=== PATIENT | male | born 1950 | race Caucasian/White ===

== ENCOUNTER → 2017-02-01 | Outpatient (CLI) | payer OTHER ==
[~2017-02-01] MED LIST: ALLO300T2 PO; ASPI81TA25 PO; ATEN-173 PO; CLB200 PO; CMD5 PO; COEN1CAP37 PO; GLC5 PO; HYDR-5688 PO; IMP/50 PO; MISCCAP80 PO; MONT1TAB3 PO; MULTTAB PO; OLME40TA30 PO; SNK PO; VITAMIN PO
== END | disposition home or self-care (01) ==
LOC: C.LABPBG 11:03
PROVIDERS: ATTEND Urology
DX: C61 Malignant neoplasm of prostate (principal)

== ENCOUNTER → 2017-12-15 | Outpatient (CLI) | payer OTHER | END | disposition home or self-care (01) | LOC: C.LABPBG 11:50 | PROVIDERS: ATTEND Urology | DX: C61 Malignant neoplasm of prostate (principal); R32 Unspecified urinary incontinence ==

== ENCOUNTER 2022-07-01 15:26 | Inpatient (IN) ==
--- NOTE | 2022-07-01 16:22 | XRay Report ---
XR ankle RT min 3V routine CLINICAL HISTORY: Right ankle injury with pain. COMPARISON STUDY: None. FINDINGS: Diffuse soft tissue swelling within the right ankle. There is a plantar heel spur and vascu lar calcifications. Mildly displaced and slightly comminuted fracture within the distal shaft of the right fibula. This demonstrates up to 2 mm of lateral displacement. There is a mildly displaced fract ure at the medial malleolus which demonstrates 4 mm of lateral displacement. There appears to be a mi ldly displaced posterior malleolus fracture with widening of the ankle mortise and posterior subluxat ion of the talus in relation to the distal tibia. IMPRESSION: A displaced trimalleolar right ankle fracture as described above with widening of the an kle mortise and posterior subluxation of the talus in relation to the distal tibia. ACT 112: Negative or not required by law. Electronically signed by: Fransisco Allred M.D. 07/01/2022 4:21 PM
[2022-07-01] MEDS ORDERED: MoRPHine SULFATE 2 MG/ML CARP IV STA (16:48)
[2022-07-01] MEDS ORDERED: ACETAMINOPHEN 1,000 MG/100 ML VIAL IV STA (16:48)
--- NOTE | 2022-07-01 16:59 | Emergency Department Note ---
Impression & Plan Closed trimalleolar fracture of right ankle, ESRD (end stage renal disease) on dialysis ED Provider Note NAME: SRINIVASAN LOMAX AGE: 71 SEX: M ARRIVES VIA: Ambulance INFORMANT: Patient ED PROVIDER(S): Panfilo Vasques MD CHIEF COMPLAINT: Right ankle pain swelling, fall PLAN: Disposition: Admit MEDICAL DECISION MAKING: The patient is a pleasant 71-year-old gentleman with a past medical history of end-stage renal disease on dialysis, Wednesday who presents to the emergency department via EMS and accompanied by his for evaluation of right ankle pain which occurred when he was attempting to get up into his friend's truck and fell backwards twisting his ankle. He reports he fell backwards onto his lower back but denies head strike or loss of consciousness. He is on Eliquis. He denies any significant back pain. He has no hip pain and moves his hips bilaterally without difficulty. On arrival patient is uncomfortable no acute distress, afebrile stable vital signs. His right ankle is swollen with moderate deformity. Distal PMS is intact. Plan films were performed and demonstrates a trimalleolar fracture with posteri or displacement of the talus. We did discuss the typical management including reduction at the bedside which the patient was in agreement with. However he does feel that he would not be able to effectively function with nonweightbearing status even with a walker. Case was discussed with [facility] on-call, Dr. Loredo (patient had knee surgery with [facility]). Given the patient cannot maintain nonweightbearing status effectively understands need for admission. They will evaluate the patient in the morning. Given his edema they may consider surgical repair after a week or so but they will reassess. Agrees with reduction and splinting in the emergency department. Patient did agree to proceed with bedside reduction which was performed with pretreatment with IV morphine per procedure note. The patient tolerated the reduction well and there was improved alignment of the talar dislocation with residual displacement fibula fx and posterior tibial fragment. WBC 10.8K nonspecific. Platelets within normal limits. H/H 9.2/20.3 without recent values for comparison. Creatinine 3.2 in setting of the patient's end- stage renal disease. Electrolytes without significant abnormality. COVID-19 RNA, LUC test was negative. Case was d/w Dr. Li, MARJAN admitting resident with HONORIO Larsen hospitalist who will evaluate the patient for admission. Triage Nursing notes reviewed and agree them. Prior medical records reviewed Vital Signs: reviewed and remarkable for no significant abnormalities Differential diagnosis: Fracture, subluxation, dislocation, contusion, ligamentous injury, neurovasc ular, compartment syndrome, rhabdomyolysis, as well as other pathologies. ER treatment provided: See below. Diagnostics interpreted by me: ECG: Sinus rhythm with occasional PVCs, 67 bpm, no overt ST elevation or depression, QTC 534, QRS 116. Cardiac Monitoring: An order for continuous cardiac monitoring was placed and demonstrated Sinus rhythm with occasional PVCs, 67 bpm. Laboratory studies: See below Imaging studies: See below Consultation(s): MARJAN Beltran admitting resident with HONORIO Larsen hospitalist HPI: The patient is a pleasant 71-year-old gentleman with a past medical history of end-stage renal disease on dialysis, Wednesday who presents to the emergency department via EMS and accompanied by his for evaluation of right ankle pain which occurred when he was attempting to get up into his friend's truck and fell backwards twisting his ankle. He reports he fell backwards onto his lower back but denies head strike or loss of consciousness. He is on Eliquis. He denies any significant back pain. He has no hip pain and moves his hips bilaterally without difficulty. ROS: See above HPI for pertinent positives & negatives. A total of 10 systems reviewed and were otherwise negative. VITALS:See Below PHYSICAL EXAMINATION: GENERAL: Awake, alert, uncomfortable-appearing, in no distress HENT: Normocephalic, atraumatic. Oropharynx unremarkable. EYES: Normal conjunctiva. Sclera non-icteric. NECK: Supple. No nuchal rigidity. FROM. No JVD. RESPIRATORY: Clear to auscultation. CARDIAC: Regular rate, normal rhythm. Extremities warm and well perfused. Pulses equal. ABDOMEN: Soft, non-distended. No tenderness to palpation. No rebound or guarding. No masses. RECTAL: Deferred. MUSCULOSKELETAL: Chest examination reveals no tenderness. The back is symmetrical on inspection without obvious abnormality. There is no CVA tenderness to palpation. Right ankle is swollen with moderate deformity. Distal PMS is intact. LOWER EXTREMITIES: Calves are equal size bilaterally and non-tender. No edema. No discoloration. NEURO: Normal sensorium. No sensory or motor deficits noted. SKIN: No rash or jaundice noted. ED COURSE: Times/Reassessments: Procedures: Splint Care: After the ortho glass splint was placed by the assistant merchandise manager, I examined the splint and confirmed proper application/placement/position. Neurovascular status was intact both proximal and distal to the splinted area. Ankle Fracture Dislocation Reduction Indication: Right ankle fracture dislocation. Verbal consent obtained. Risks and benefits were explained with the usual customary discussion. Neurovascular examination before the procedure revealed no deficits. The right ankle fracture dislocation was reduced by placing the patient supine and applying gentle inline axial traction on the right forefoot foot and heel with slight plantar flexion while counter traction on the proximal tibia was applied and distal tibia stabilized with hip and knee in flexion. This resulted in reduction without complication. Post-reduction Xray demonstrates improved anatomic alignment. Neurovascular examination after the procedure revealed no deficits. The patient had significant pain relief and tolerated the procedure well. Panfilo Vasques MD Past Med/Surg History Medical History Atrial fibrillation Depression Diabetes mellitus Diabetic neuropathy ESRD (end stage renal disease) on dialysis GERD (gastroesophageal reflux disease) Gout HLD (hyperlipidemia) HTN (hypertension) Impotence, organic Incontinence Localized primary osteoarthritis of left lower leg (01/10/13) Neoplasm of prostate Prostate cancer Sleep apnea Family History Other Family history non-contributory Social History Smoking Status: Former smoker Tobacco Type: Smokeless Tobacco (Dip or Chew) Second Hand Exposure: No; Do You Dip or Chew Tobacco: Yes; Tobacco Cessation Education Requested by Patient: No Hx Alcohol Use: No Hx Substance Use: No Preferred Language: Macedonian Communication Ability: Effective Can Crimper Required: No Current Living Situation: Spouse Other Information That Helps Us Care for You: No Feels Safe at Home: Yes Safety Concerns: Feels Safe At This Time Assistive Devices: CPAP Allergies Allergies Allergy/AdvReac Type Severity Reaction Status Date / Time oxycodone AdvReac Unknown severe dry Verified 05/19/21 15:45 mouth, 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 side effects (TIRED, LETHARGIC) Home Meds Home Medications Medication Instructions Recorded Confirmed B-complex with vitamin C 1 tab PO DAILY 07/01/22 07/01/22 Nerve Renew 2 tab PO DAILY 07/01/22 07/01/22 Nerve Repair Optimizer 1 tab PO DAILY 07/01/22 07/01/22 acetaminophen 650 mg 650 mg PO Q12H PRN Pain 07/01/22 07/01/22 tablet,extended release (Arthritis Pain Relief (acetaminophen) ER) allopurinol 100 mg tablet 100 mg PO BID 07/01/22 07/01/22 amiodarone 200 mg tablet 200 mg PO DAILY 07/01/22 07/01/22 apixaban 5 mg tablet (Eliquis) 5 mg PO BID 07/01/22 07/01/22 atorvastatin 40 mg tablet 40 mg PO DAILY 07/01/22 07/01/22 cetirizine 10 mg tablet (Zyrtec) 10 mg PO DAILY 07/01/22 07/01/22 cholecalciferol (vitamin D3) 50 50 mcg PO DAILY 07/01/22 07/01/22 mcg (2,000 unit) tablet (Vitamin D3) coenzyme Q10 200 mg capsule (Co 200 mg PO DAILY 07/01/22 07/01/22 Q-10) famotidine 20 mg tablet 20 mg PO BID 07/01/22 07/01/22 furosemide 40 mg tablet (Lasix) 40 mg PO DAILY 07/01/22 07/01/22 glipizide 5 mg tablet 5 mg PO BID 07/01/22 07/01/22 imipramine HCl 50 mg tablet 50 mg PO QPM 07/01/22 07/01/22 melatonin 10 mg tablet 10 mg PO HS 07/01/22 07/01/22 metoprolol succinate 25 mg 12.5 mg PO DAILY 07/01/22 07/01/22 tablet,extended release 24 hr midodrine 10 mg tablet 5 mg PO 3XWK 07/01/22 07/01/22 montelukast 10 mg tablet 10 mg PO PM 07/01/22 07/01/22 omega-3 fatty acids 1,000 mg 1,000 mg PO BID 07/01/22 07/01/22 capsule sacubitril 24 mg-valsartan 26 mg 1 tab PO BID 07/01/22 07/01/22 tablet (Entresto) sertraline 25 mg tablet 25 mg PO DAILY 07/01/22 07/01/22 Results & Data (ED) Vital Signs Vital Signs - 24 hr 07/01/22 15:38 07/01/22 17:31 07/01/22 18:00 Temperature 36.9 C Temperature Source Oral Pulse Rate 64 Pulse Rate [Right Finger] 66 66 Respiratory Rate 16 16 16 Respiratory Effort / Characteristics Non-Labored Spontaneous Respiratory Depth Normal Blood Pressure 136/66 Blood Pressure [Right Arm] 137/62 127/82 Blood Pressure Mean 89 Blood Pressure Mean [Right Arm] 87 97 Pulse Oximetry 97 96 96 Oxygen Delivery Method Room Air Room Air Sepsis Recent Fever Within 48 Hours No Sepsis New/Unexplained Change in Mental Status N/A Sepsis Action Taken by Nursing No Action Required Laboratory Data Result diagrams: 07/01/22 17:08 07/01/22 19:02 Lab Results 07/01/22 07/01/22 07/01/22 Range/Units 17:08 17:08 17:08 WBC 10.85 H (4.8-10.8) K/ul RBC 2.83 L (4.63-6.08) M/uL Hgb 9.2 L (14.0-18.0) g/dl Hct 28.3 L (40.1-51.0) % MCV 100.0 (80.0-100.0) fL MCH 32.5 (25.0-34.0) pg MCHC 32.5 (32.0-36.0) g/dL RDW Std Deviation 62.0 H (36.4-46.3) fL RDW Coeff of Charlie 17.2 H (11.5-14.5) % Plt Count 246 (130-400) K/uL MPV 9.8 (9.4-12.4) fL Immature Gran % (Auto) 0.4 % Neut % (Auto) 80.7 % Lymph % (Auto) 6.6 % [place] % (Auto) 8.9 % Eos % (Auto) 2.8 % Baso % (Auto) 0.6 % Neut # (Auto) 8.75 H (1.4-6.5) K/uL Lymph # (Auto) 0.72 L (1.2-3.4) K/uL [place] # (Auto) 0.97 H (0.24-0.82) K/uL Eos # (Auto) 0.30 (0-0.50) K/uL Baso # (Auto) 0.07 (0-0.2) K/uL Immature Gran # (Auto) 0.04 H (0.00-0.02) K/uL PT 13.5 H (9.0-12.0) Seconds INR 1.3 H (0.9-1.1) Sodium 136 (136-145) mmol/L Potassium TNP Chloride 95 L (98-107) mmol/L Carbon Dioxide 33 H (21-32) mmol/L Anion Gap 8 (3-11) BUN 14 (6-23) mg/dl Creatinine 3.27 H (0.6-1.4) mg/dl Est Cr Clr Drug Dosing 25.3 ml/min Est GFR ( Amer) 20.7 ml/min Est GFR (Non-Af Amer) 17.9 ml/min BUN/Creatinine Ratio 4.3 L (10-20) Glucose 85 (70-99(Fasting)) mg/dl Calcium 9.2 (8.5-10.1) mg/dl Phosphorus 2.8 (2.5-4.9) mg/dl Magnesium 2.1 (1.7-2.4) mg/dl SARS-CoV-2, RNA, NAAT (NEGATIVE) 07/01/22 Range/Units 17:14 WBC (4.8-10.8) K/ul RBC (4.63-6.08) M/uL Hgb (14.0-18.0) g/dl Hct (40.1-51.0) % MCV (80.0-100.0) fL MCH (25.0-34.0) pg MCHC (32.0-36.0) g/dL RDW Std Deviation (36.4-46.3) fL RDW Coeff of Charlie (11.5-14.5) % Plt Count (130-400) K/uL MPV (9.4-12.4) fL Immature Gran % (Auto) % Neut % (Auto) % Lymph % (Auto) % [place] % (Auto) % Eos % (Auto) % Baso % (Auto) % Neut # (Auto) (1.4-6.5) K/uL Lymph # (Auto) (1.2-3.4) K/uL [place] # (Auto) (0.24-0.82) K/uL Eos # (Auto) (0-0.50) K/uL Baso # (Auto) (0-0.2) K/uL Immature Gran # (Auto) (0.00-0.02) K/uL PT (9.0-12.0) Seconds INR (0.9-1.1) Sodium (136-145) mmol/L Potassium Chloride (98-107) mmol/L Carbon Dioxide (21-32) mmol/L Anion Gap (3-11) BUN (6-23) mg/dl Creatinine (0.6-1.4) mg/dl Est Cr Clr Drug Dosing ml/min Est GFR ( Amer) ml/min Est GFR (Non-Af Amer) ml/min BUN/Creatinine Ratio (10-20) Glucose (70-99(Fasting)) mg/dl Calcium (8.5-10.1) mg/dl Phosphorus (2.5-4.9) mg/dl Magnesium (1.7-2.4) mg/dl SARS-CoV-2, RNA, NAAT NEGATIVE (NEGATIVE) Administered Medications Allopurinol (Allopurinol 100 Mg Tab) 100 mg PO [id number] [facility] Stop: 07/31/22 21:01 Last Admin: 07/01/22 22:43 Dose: 100 mg Documented By: EKF Famotidine (Famotidine 20 Mg Tab) 20 mg PO DAILY JENNY Stop: 07/31/22 21:01 Last Admin: 07/01/22 22:43 Dose: 20 mg Documented By: EKF Fish Oil (Morrow-3 (Purified Fish Oil) 1 Gm Cap) 1 gm PO BID JENNY Stop: 07/31/22 21:01 Last Admin: 07/01/22 22:19 Dose: 1 gm Documented By: EKF Imipramine HCl (Imipramine Hcl 50 Mg Tab) 50 mg PO QPM JENNY Stop: 07/31/22 21:01 Last Admin: 07/01/22 22:18 Dose: 50 mg Documented By: EKF Insulin Aspart (Insulin Aspart Per Unit) 0 units SC Q6H JENNY Stop: 07/31/22 20:14 Last Admin: 07/01/22 21:23 Dose: Not Given Documented By: EKF Melatonin (Melatonin 3 Mg Tab) 9 mg PO HS JENNY Stop: 07/31/22 21:01 Last Admin: 07/01/22 22:18 Dose: 9 mg Documented By: EKF Montelukast Sodium (Montelukast Sodium 10 Mg Tablet) 10 mg PO PM JENNY Stop: 07/31/22 21:01 Last Admin: 07/01/22 22:18 Dose: 10 mg Documented By: EKF Sacubitril/Valsartan (Valsartan/Sacubitril 26/24mg Tab) 1 tab PO BID JENNY Stop: 07/31/22 21:01 Last Admin: 07/01/22 22:19 Dose: 1 tab Documented By: EKF Discontinued Medications Acetaminophen (Ofirmev) 1,000 mg in 100 mls @ 400 mls/hr IV NOW STA Stop: 07/01/22 17:02 Last Infusion: 07/01/22 17:34 Dose: 0 mls/hr Documented By: Admin: 07/01/22 17:19 Dose: 400 mls/hr Documented By: ASW Morphine Sulfate (Morphine Sulfate 2 Mg/Ml Carp) 1 mg IV NOW STA Stop: 07/01/22 16:49 Last Admin: 07/01/22 17:20 Dose: 1 mg Documented By: ASW Imaging Data Radiologist's Impression: Ankle X-Ray 07/01/22 15:46 XR ankle RT min 3V routine CLINICAL HISTORY: Right ankle injury with pain. COMPARISON STUDY: None. FINDINGS: Diffuse soft tissue swelling within the right ankle. There is a plantar heel spur and vascular calcifications. Mildly displaced and slightly comminuted fracture within the distal shaft of the right fibula. This demonstrates up to 2 mm of lateral displacement. There is a mildly displaced fracture at the medial malleolus which demonstrates 4 mm of lateral displacement. There appears to be a mildly displaced posterior malleolus fracture with widening of the ankle mortise and posterior subluxation of the talus in relation to the distal tibia. IMPRESSION: A displaced trimalleolar right ankle fracture as described above with widening of the ankle mortise and posterior subluxation of the talus in relation to the distal tibia. ACT 112: Negative or not required by law. Electronically signed by: Fransisco Allred M.D. 07/01/2022 4:21 PM Ankle X-Ray 07/01/22 18:21 XR ankle RT min 3V routine HISTORY: 71 years-old Male post reduction status post reduction and casting of acute right ankle fracture COMPARISON: Radiographs of same day at 3:52 PM TECHNIQUE: 3 radiographs of the right ankle FINDINGS: Pes planus with degenerative spurring of the calcaneus. Mild osteoarthritis of the foot and ankle. Acute comminuted distal fibular metaphyseal fracture demonstrates unchanged alignment with the largest fracture fragment displaced posteriorly a few millimeters. 2 mm lateral displacement of the distal fracture fragment. Mild widening of the distal tibiofibular syndesmosis. Mild subluxation of the tibiotalar joint has improved from prior. Acute nondisplaced medial malleolar fracture demonstrates improved alignment. Posteriorly displaced posterior malleolar fracture redemonstrated along with os trigonum. IMPRESSION: Improved alignment of the acute fracture dislocation of the right ankle status post reduction and casting. ACT 112: Negative or not required by law. The above report was generated using voice recognition software. It may contain grammatical, syntax or spelling errors. Electronically signed by: Perez Neri M.D. 07/01/2022 7:06 PM Discharge Plan Visit Data Chief Complaint: Ankle Pain Stated Complaint: FALL, R ANKLE PAIN ED Provider: Panfilo Vasques Discharge Problem: Closed trimalleolar fracture of right ankle, ESRD (end stage renal disease) on dialysis Patient Disposition: Admitted As Inpatient Discharge Instructions Interventions: ED Discharge Assessment Last Done: 07/01/22 20:27
[2022-07-01 17:22] LABS: Basophils # (auto) 0.07 K/uL (0-0.2); Basophils % (auto) 0.6 %; Eosinophils % (auto) 2.8 %; Hematocrit (blood only) 28.3 % (40.1-51.0); Hemoglobin 9.2 g/dl (14.0-18.0); Immature Granulocytes # (auto) 0.04 K/uL (0.00-0.02); Immature Granulocytes % (auto) 0.4 %; Lymphocytes # (auto) 0.72 K/uL (1.2-3.4); Lymphocytes % (auto) 6.6 %; Mean Corpuscular Hemoglobin 32.5 pg (25.0-34.0); Mean Corpuscular Hgb Conc 32.5 g/dL (32.0-36.0); Mean Platelet Volume 9.8 fL (9.4-12.4); Monocytes # (auto) 0.97 K/uL (0.24-0.82); Monocytes % (auto) 8.9 %; Neutrophils # (auto) 8.75 K/uL (1.4-6.5); Neutrophils % (auto) 80.7 %; Platelet Count 246 K/uL (130-400); RDW Coefficient of Variation 17.2 % (11.5-14.5); Red Blood Count 2.83 M/uL (4.63-6.08); White Blood Count 10.85 K/ul (4.8-10.8)
[2022-07-01 17:30] LABS: INR 1.3 (0.9-1.1); Prothrombin Time 13.5 Seconds (9.0-12.0)
[2022-07-01 17:48] LABS: Anion Gap 8 (3-11); BUN Creatinine Ratio 4.3 (10-20); Blood Urea Nitrogen 14 mg/dl (6-23); Calcium 9.2 mg/dl (8.5-10.1); Carbon Dioxide 33 mmol/L (21-32); Chloride 95 mmol/L (98-107); Creatinine Clr Calc Pharmacy 25.3 ml/min; Est GFR (African American) 20.7 ml/min; Est GFR (Non-African American) 17.9 ml/min; Glucose 85 mg/dl (70-99(Fasting)); Magnesium 2.1 mg/dl (1.7-2.4); Phosphorus 2.8 mg/dl (2.5-4.9); Sodium 136 mmol/L (136-145)
--- NOTE | 2022-07-01 18:46 | History & Physical Report ---
Date of Service July 01, 2022 Assessment & Plan (1) Fracture of right patella: Plan: -xray in the ED showed displaced trimalleolar right ankle fracture with widening of the ankle mortise and posterior subluxation of the talus in relation to the distal tibia. -Patient seen on admission is S/P reduction and casting. Repeat Xray shows improved alignment of the acute fx dislocation. -Ortho consulted and states that they will see the patient in the morning and i nitial plan is to do surgery outpatient in one week after swelling goes done. -Will make NPO after midnight in case ortho choices to do surgery in the AM. -Repeat CBC in the AM. (2) Atrial fibrillation: Plan: -Patient is unsure if he has A fib. Was on Warafin but now on Elqiuis and amodarone -Will hold Eliquis overnight in case patient goes to surgery. Last had Eliquis 07/01 in the AM. -Continue amiodarone 200mg QD (3) ESRD (end stage renal disease) on dialysis: Plan: -On dialysis 3 x a week. -Had dialysis on 07/01. Next due on 07/03. -Repeat BMP in the morning. (4) Prostate cancer: Plan: - In remission s/p prostatectomy (5) Diabetes mellitus: Plan: -Patient's home regimen held on admission -Continue BSG checks, sliding-scale insulin, hypoglycemic protocol (6) GERD (gastroesophageal reflux disease): Plan: -Continue famotidine 20mg BID (7) HLD (hyperlipidemia): Plan: -Continue atorvastatin 40mg QD. (8) Gout: Plan: -continue allopurinol 100mg BID (9) HTN (hypertension): Plan: -Continue metoprolol 12.5 mg QD, midodrine 5mg 3xwk -Patient is on Entresto BID, Lasix 40mg QD and has had an ECHO recently. Patient does not think he has HF. -Will continue current meds and have patient f/u with his PCP as an outpatient. (10) Diabetic neuropathy: Plan: -Continue at home meds. (11) Depression: Plan: -Continue sertraline 25mg QD Plan Fluids: None Nutrition: DM2, NPO after midnight Code status: full code DVT ppx: holding Eliquis,restart after ortho evaluation Consults: ortho PT/OT: hold for now Dispo: med/surg Thank you for allowing me to participate in the care of your patient. -Dr. Remy Li PGY1 History of Present Illness Chief Complaint: Right ankle injury Primary Care Provider: Austyn Pinto Patient is a 71 y/o male who presents to the ED with R ankle pain. PHMx of CABG (2019), DM2, prostate cancer (in remission), ESRD on dialysis (MWF), on Eliquis (possibly Afib?). 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 Patient states that he has had an ECHO recently but does not know the reason for it. Patient states that he hurt his ankle when he was trying to get into a truck and fell out of the truck and landed on his R ankle and twisted. Denies any LOC, or hitting his head. He denies any other injuries besides his ankle. In the ED: Full body exam negative for any distracting injuries besides his R ankle. Xray showed displaced trimalleolar right ankle fracture with widening of the ankle mortise and posterior subluxation of the talus in relation to the distal tibia, VS stable, labs showed slight leukocytosis 10.8, hemoglobin 9.2, K 3.2, Cr 3.27, given morphine 1mg for pain. Ortho called and will evaluate in the AM and to admit the patient given nonweightbearing status. 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 side effects (TIRED, LETHARGIC) Home Medications Medication Instructions Recorded Confirmed Type B-complex with vitamin C 1 tab PO DAILY 07/01/22 07/01/22 History Nerve Renew 2 tab PO DAILY 07/01/22 07/01/22 History Nerve Repair Optimizer 1 tab PO DAILY 07/01/22 07/01/22 History acetaminophen 650 mg 650 mg PO Q12H PRN Pain 07/01/22 07/01/22 History tablet,extended release (Arthritis Pain Relief (acetaminophen) ER) allopurinol 100 mg tablet 100 mg PO BID 07/01/22 07/01/22 History amiodarone 200 mg tablet 200 mg PO DAILY 07/01/22 07/01/22 History apixaban 5 mg tablet (Eliquis) 5 mg PO BID 07/01/22 07/01/22 History atorvastatin 40 mg tablet 40 mg PO DAILY 07/01/22 07/01/22 History cetirizine 10 mg tablet (Zyrtec) 10 mg PO DAILY 07/01/22 07/01/22 History cholecalciferol (vitamin D3) 50 50 mcg PO DAILY 07/01/22 07/01/22 History mcg (2,000 unit) tablet (Vitamin D3) coenzyme Q10 200 mg capsule (Co 200 mg PO DAILY 07/01/22 07/01/22 History Q-10) famotidine 20 mg tablet 20 mg PO BID 07/01/22 07/01/22 History furosemide 40 mg tablet (Lasix) 40 mg PO DAILY 07/01/22 07/01/22 History glipizide 5 mg tablet 5 mg PO BID 07/01/22 07/01/22 History imipramine HCl 50 mg tablet 50 mg PO QPM 07/01/22 07/01/22 History melatonin 10 mg tablet 10 mg PO HS 07/01/22 07/01/22 History metoprolol succinate 25 mg 12.5 mg PO DAILY 07/01/22 07/01/22 History tablet,extended release 24 hr midodrine 10 mg tablet 5 mg PO 3XWK 07/01/22 07/01/22 History montelukast 10 mg tablet 10 mg PO PM 07/01/22 07/01/22 History omega-3 fatty acids 1,000 mg 1,000 mg PO BID 07/01/22 07/01/22 History capsule sacubitril 24 mg-valsartan 26 mg 1 tab PO BID 07/01/22 07/01/22 History tablet (Entresto) sertraline 25 mg tablet 25 mg PO DAILY 07/01/22 07/01/22 History Past Med/Surg History Medical History Atrial fibrillation Depression Diabetes mellitus Diabetic neuropathy ESRD (end stage renal disease) on dialysis GERD (gastroesophageal reflux disease) Gout HLD (hyperlipidemia) HTN (hypertension) Impotence, organic Incontinence Localized primary osteoarthritis of left lower leg (01/10/13) Neoplasm of prostate Prostate cancer Sleep apnea Family History Other Family history non-contributory Social History Smoking Status: Former smoker Tobacco Type: Smokeless Tobacco (Dip or Chew) Second Hand Exposure: No; Do You Dip or Chew Tobacco: Yes; Tobacco Cessation Education Requested by Patient: No Hx Alcohol Use: No Hx Substance Use: No Preferred Language: Serbian Communication Ability: Effective Director Of Retail 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 Required: No marital status: Current Living Situation: Spouse Other Information That Helps Us Care for You: No Feels Safe at Home: Yes Safety Concerns: Feels Safe At This Time Assistive Devices: Cane and Walker Review of Systems Review of Systems: Constitutional: denies fever, chills, fatigue HEENT: denies congestion, sore throat CV: denies chest pain, palpitations Resp: denies shortness of breath, cough GI: denies abdominal pain, nausea, vomiting, constipation, diarrhea : denies pain with urination, change in urinary frequency Neuro: denies new numbness, tingling, weakness Physical Exam Physical Exam: Constitutional: well-appearing, no acute distress HEENT: NCAT, no conjunctival injection CV: irregularly irregular rate and rhythm, extremities well-perfused, Slight LE edema of L leg (R leg unable to assess due to casting) Resp: CTABL, no wheezes/rales/rhonchi appreciated, no increased work of breathing GI: soft, nondistended, nontender, BS normoactive MSK: R ankle s/p reduction and casting Skin: warm, dry, no rash appreciated Neuro: alert, oriented, no focal neurologic deficit appreciated Results & Data Results & Data ([facility]) Vital Signs (Past 12 Hours) Vital Signs Temp Pulse Pulse Resp BP BP Pulse Ox 07/01/22 18:00 66 16 127/82 96 07/01/22 17:31 66 16 137/62 96 07/01/22 15:38 36.9 C 64 16 136/66 97 O2 Del Method 07/01/22 18:00 07/01/22 17:31 Room Air 07/01/22 15:38 Room Air Supervising Physician Co-Signing Physician Notes I personally saw and examined the patient. I verified all krishna points and agree with resident physician Dr Remy Li DO with the following exceptions and/or additions: 71 year old male admission for ankle fracture as not safe to go home at the current time. O/E RRR, no murmurs, Chest CTAB, Abdo SNT, splint in place A/P Right Trimalleolar Ankle Fracture - hold Eliquis, consult orthopedics for possible surgical management ESRD - consult nephrology for dialysis Resident Activity Tracking Resident Involvement: Resident Care Provided Care Provided: Adult [facility] Medicine
--- NOTE | 2022-07-01 19:08 | XRay Report ---
XR ankle RT min 3V routine HISTORY: 71 years-old Male post reduction status post reduction and casting of acute right ankle fra cture COMPARISON: Radiographs of same day at 3:52 PM TECHNIQUE: 3 radiographs of the right ankle FINDINGS: Pes planus with degenerative spurring of the calcaneus. Mild osteoarthritis of the foot and ankle. Ac tulalip comminuted distal fibular metaphyseal fracture demonstrates unchanged alignment with the largest fracture fragment displaced posteriorly a few millimeters. 2 mm lateral displacement of the distal fr acture fragment. Mild widening of the distal tibiofibular syndesmosis. Mild subluxation of the tibiot alar joint has improved from prior. Acute nondisplaced medial malleolar fracture demonstrates improve d alignment. Posteriorly displaced posterior malleolar fracture redemonstrated along with os trigonum . IMPRESSION: Improved alignment of the acute fracture dislocation of the right ankle status post reduc tion and casting. ACT 112: Negative or not required by law. The above report was generated using voice recognition software. It may contain grammatical, syntax o r spelling errors. Electronically signed by: Perez Neri M.D. 07/01/2022 7:06 PM
[2022-07-01] MEDS ORDERED: GLUCAGON FOR INJ 1 MG VIAL SQ PRN (20:04)
[2022-07-01] MEDS ORDERED: GLUCOSE 40% GEL 15 GM TUBE PO PRN (20:04)
[2022-07-01] MEDS ORDERED: DEXTROSE 50% 50 ML SYRINGE IV PRN (20:04)
[2022-07-01] MEDS ORDERED: CARBOHYDRATES FOR HYPOGLYCEMIA PO PRN (20:04)
[2022-07-01] MEDS ORDERED: GLUCOSE 10 TAB/TUBE PO PRN (20:04)
[2022-07-01] MEDS: INSULIN ASPART PER UNIT SC SCH (21:23)
[2022-07-01] MEDS: MONTELUKAST SODIUM 10 MG TABLET PO SCH (22:18)
[2022-07-01] MEDS: IMIPRAMINE HCL 50 MG TAB PO SCH (22:18)
[2022-07-01] MEDS: MELATONIN 3 MG TAB PO SCH (22:18)
[2022-07-01] MEDS: VALSARTAN/SACUBITRIL 26/24MG TAB PO SCH (22:19)
[2022-07-01] MEDS: OMEGA-3 (PURIFIED FISH OIL) 1 GM CAP PO SCH (22:19)
[2022-07-01] MEDS: allopurinoL 100 MG TAB PO SCH (22:43)
[2022-07-01] MEDS: FAMOTIDINE 20 MG TAB PO SCH (22:43)
[2022-07-02] MEDS: INSULIN ASPART PER UNIT SC SCH ×5 (03:33→20:48)
[2022-07-02] MEDS: OMEGA-3 (PURIFIED FISH OIL) 1 GM CAP PO SCH ×2 (08:34→20:47)
[2022-07-02] MEDS: FUROSEMIDE 40 MG TAB PO SCH (08:34)
[2022-07-02] MEDS: ATORVASTATIN 40 MG TAB PO SCH (08:34)
[2022-07-02] MEDS: VITAMIN B COMPLEX TAB PO SCH (08:34)
[2022-07-02] MEDS: METOPROLOL SUCC 25MG EXT REL TAB PO SCH (08:35)
[2022-07-02] MEDS: VALSARTAN/SACUBITRIL 26/24MG TAB PO SCH ×2 (08:35→20:46)
[2022-07-02] MEDS: FAMOTIDINE 20 MG TAB PO SCH (08:35)
[2022-07-02] MEDS: SERTRALINE HCL 50 MG TABLET PO SCH (08:35)
[2022-07-02] MEDS: CETIRIZINE HCL 10 MG TABLET PO SCH (08:35)
[2022-07-02] MEDS: CHOLECALCIFEROL 1,000 UNITS 25 MCG TAB PO SCH (08:35)
[2022-07-02] MEDS: AMIODARONE 200 MG TAB PO SCH (08:36)
[2022-07-02] MEDS ORDERED: NERVE RENEW PO SCH (09:00)
[2022-07-02] MEDS ORDERED: NON-FORMULARY MEDICATION (Coenzyme Q10 [Co Q-10] 200 mg Capsule) PO SCH (09:00)
[2022-07-02] MEDS ORDERED: [UNRECOGNIZED DRUG - OTHER] PO SCH (09:00)
--- NOTE | 2022-07-02 10:05 | Orthopedic Consultation ---
Date of Consultation July 02, 2022 Assessment & Plan (1) Closed trimalleolar fracture of right ankle: He has an unstable trimalleolar fracture of his right ankle. This will require ORIF for optimal ankle function and ambulation in the future. He is a higher risk surgical candidate given his underlying significant medical problems. He took his dose of Eliquis yesterday, and he therefore cannot have surgery for 48 hours after that last dose. We will therefore let him eat today. We discussed surgical repair of his ankle fracture prior to discharge versus discharging him home and following up as an outpatient to be scheduled on an elective basis in the next 1 to 2 weeks. Will discuss with [facility] staff to determine surgeon availability over the next few days. Either way, he will be nonweightbearing on that right ankle for several months. He will likely be nonweightbearing for at least 3 months, and possibly longer given his poor kidney function causing delayed bone healing. History of Present Illness Reason for Consultation: Right ankle injury Attending Physician: Conner Lin MD History of Present Illness Mr. Philip is a 71-year-old male with multiple medical problems who fell while trying to get into his truck and injured his right ankle. He denies any other extremity injury other than the right ankle. He has multiple medical problems, including atrial fibrillation. He is on Eliquis and amiodarone for this. Last dose of Eliquis was yesterday morning. He has also diabetic and has resultant end-stage renal disease on dialysis 3 times a week. He lives at home with his . Allergies Allergy/AdvReac Type Severity Reaction Status Date / Time oxycodone AdvReac Unknown severe dry Verified 05/19/21 15:45 mouth, top cutter side effects (TIRED, LETHARGIC) Home Medications Medication Instructions Recorded Confirmed Type B-complex with vitamin C 1 tab PO DAILY 07/01/22 07/01/22 History Nerve Renew 2 tab PO DAILY 07/01/22 07/01/22 History Nerve Repair Optimizer 1 tab PO DAILY 07/01/22 07/01/22 History acetaminophen 650 mg 650 mg PO Q12H PRN Pain 07/01/22 07/01/22 History tablet,extended release (Arthritis Pain Relief (acetaminophen) ER) allopurinol 100 mg tablet 100 mg PO BID 07/01/22 07/01/22 History amiodarone 200 mg tablet 200 mg PO DAILY 07/01/22 07/01/22 History apixaban 5 mg tablet (Eliquis) 5 mg PO BID 07/01/22 07/01/22 History atorvastatin 40 mg tablet 40 mg PO DAILY 07/01/22 07/01/22 History cetirizine 10 mg tablet (Zyrtec) 10 mg PO DAILY 07/01/22 07/01/22 History cholecalciferol (vitamin D3) 50 50 mcg PO DAILY 07/01/22 07/01/22 History mcg (2,000 unit) tablet (Vitamin D3) coenzyme Q10 200 mg capsule (Co 200 mg PO DAILY 07/01/22 07/01/22 History Q-10) famotidine 20 mg tablet 20 mg PO BID 07/01/22 07/01/22 History furosemide 40 mg tablet (Lasix) 40 mg PO DAILY 07/01/22 07/01/22 History glipizide 5 mg tablet 5 mg PO BID 07/01/22 07/01/22 History imipramine HCl 50 mg tablet 50 mg PO QPM 07/01/22 07/01/22 History melatonin 10 mg tablet 10 mg PO HS 07/01/22 07/01/22 History metoprolol succinate 25 mg 12.5 mg PO DAILY 07/01/22 07/01/22 History tablet,extended release 24 hr midodrine 10 mg tablet 5 mg PO 3XWK 07/01/22 07/01/22 History montelukast 10 mg tablet 10 mg PO PM 07/01/22 07/01/22 History omega-3 fatty acids 1,000 mg 1,000 mg PO BID 07/01/22 07/01/22 History capsule sacubitril 24 mg-valsartan 26 mg 1 tab PO BID 07/01/22 07/01/22 History tablet (Entresto) sertraline 25 mg tablet 25 mg PO DAILY 07/01/22 07/01/22 History Patient History Medical History Atrial fibrillation Depression Diabetes mellitus Diabetic neuropathy ESRD (end stage renal disease) on dialysis GERD (gastroesophageal reflux disease) Gout HLD (hyperlipidemia) HTN (hypertension) Impotence, organic Incontinence Localized primary osteoarthritis of left lower leg (01/10/13) Neoplasm of prostate Prostate cancer Sleep apnea Family History Other Family history non-contributory Social History Smoking Status: Former smoker Tobacco Type: Smokeless Tobacco (Dip or Chew) Second Hand Exposure: No; Do You Dip or Chew Tobacco: Yes; Tobacco Cessation Education Requested by Patient: No Hx Alcohol Use: No Hx Substance Use: No Preferred Language: Venezuelan Communication Ability: Effective Field Service 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 This was taken down to inspect the skin. Relatively mild swelling around the ankle. No excessive edema or fracture blisters are noted. He does have skin wrinkling. His swelling and tenderness both along the medial and lateral aspects of his ankle. He reports intact sensation to light touch in the superficial peroneal, deep peroneal, and tibial nerve distributions. Motor function is intact. Foot is warm and well perfused. Compartments are soft and compressible. No excessive pain with passive stretch of the great toe. Results & Data ([facility]) Vital Signs (Past 12 Hours) Vital Signs Temp Pulse Resp BP Pulse Ox O2 Del Method 07/02/22 07:16 37.0 C 72 18 143/73 H 92 Room Air 07/01/22 23:26 36.9 C 71 16 117/68 91 Room Air Diagnostic Findings Right ankle x-rays were reviewed. They show a moderately displaced trimalleolar ankle fracture with relatively small medial and posterior malleolar fragments. Posterior malleolar fragment involves less than 10% of the articular surface. Fibula fracture is at the [place] C level with likely syndesmotic disruption. Postreduction x-rays show good alignment of the ankle.
[2022-07-02 10:09] LABS: Basophils # (auto) 0.04 K/uL (0-0.2); Basophils % (auto) 0.5 %; Eosinophils # (auto) 0.35 K/uL (0-0.50); Eosinophils % (auto) 4.3 %; Hematocrit (blood only) 26.2 % (40.1-51.0); Hemoglobin 8.3 g/dl (14.0-18.0); Immature Granulocytes # (auto) 0.03 K/uL (0.00-0.02); Immature Granulocytes % (auto) 0.4 %; Lymphocytes # (auto) 0.73 K/uL (1.2-3.4); Lymphocytes % (auto) 8.9 %; Mean Corpuscular Hgb Conc 31.7 g/dL (32.0-36.0); Mean Corpuscular Volume 101.2 fL (80.0-100.0); Mean Platelet Volume 9.2 fL (9.4-12.4); Neutrophils # (auto) 6.15 K/uL (1.4-6.5); Neutrophils % (auto) 74.9 %; Platelet Count 229 K/uL (130-400); RDW Coefficient of Variation 17.4 % (11.5-14.5); RDW Standard Deviation 63.6 fL (36.4-46.3); Red Blood Count 2.59 M/uL (4.63-6.08)
--- NOTE | 2022-07-02 10:23 | Nephrology Consultation ---
Date of Consultation July 02, 2022 Assessment & Plan (1) ESRD (end stage renal disease) on dialysis: (2) HTN (hypertension): (3) Closed trimalleolar fracture of right ankle: (4) Diabetes mellitus: Plan 71 y o m with ESRD on HD, MWF, admitted after a fall and ankle fracture, s/p reduction , alignment and cast. Had HD yesterday, BP, volume status and electrolyte acceptable. --keep on scheduled for dialysis tomorrow as regular MWF schedule. --continued Nephrocaps and renal diet --dose medications for GFR less than 10 --Avoid IV fluid --will continue on YOAN with dialysis tomorrow. Will follow Thank you for allowing me to participate in your patient's care. It was a pl easure to see Raisa. History of Present Illness Reason for Consultation: End-stage renal disease, on hemodialysis. Attending Physician: Conner Lin MD History of Present Illness Raisa Philip is a 71 Y old gentleman with end-stage renal disease, hypertension, diabetes, dyslipidemia, CAD admitted to the hospital after he had right ankle fracture and dislocation. Nephrology consult requested to provide hemodialysis while inpatient. EMR records are reviewed in detail during patient's visit. Raisa presented to ER yesterday after he had a fall and had right ankle fracture while he was trying to get into a truck and was having difficulty getting up. In ER ankle xray showed displaced trimalleolar right ankle fracture with widening of the ankle mortise and posterior subluxation of the talus in relation to the distal tibia. He had reduction, alignment and cause staying of the ankle in ER. Currently waiting for orthopedic evaluation for further management. He reports the pain is manageable while he is not moving. Non smoker. 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 He had dialysis yesterday as his regular schedule. Had CKD but kidney function worsened after CABG leading to ESRD requiring dialysis. He does not make much urine anymore. HTN, DM seems well controlled. CAD s/p CABG in 2019. Overall otherwise asymptomatic. 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 (TIRED, LETHARGIC) Home Medications Medication Instructions Recorded Confirmed Type B-complex with vitamin C 1 tab PO DAILY 07/01/22 07/01/22 History Nerve Renew 2 tab PO DAILY 07/01/22 07/01/22 History Nerve Repair Optimizer 1 tab PO DAILY 07/01/22 07/01/22 History acetaminophen 650 mg 650 mg PO Q12H PRN Pain 07/01/22 07/01/22 History tablet,extended release (Arthritis Pain Relief (acetaminophen) ER) allopurinol 100 mg tablet 100 mg PO BID 07/01/22 07/01/22 History amiodarone 200 mg tablet 200 mg PO DAILY 07/01/22 07/01/22 History apixaban 5 mg tablet (Eliquis) 5 mg PO BID 07/01/22 07/01/22 History atorvastatin 40 mg tablet 40 mg PO DAILY 07/01/22 07/01/22 History cetirizine 10 mg tablet (Zyrtec) 10 mg PO DAILY 07/01/22 07/01/22 History cholecalciferol (vitamin D3) 50 50 mcg PO DAILY 07/01/22 07/01/22 History mcg (2,000 unit) tablet (Vitamin D3) coenzyme Q10 200 mg capsule (Co 200 mg PO DAILY 07/01/22 07/01/22 History Q-10) famotidine 20 mg tablet 20 mg PO BID 07/01/22 07/01/22 History furosemide 40 mg tablet (Lasix) 40 mg PO DAILY 07/01/22 07/01/22 History glipizide 5 mg tablet 5 mg PO BID 07/01/22 07/01/22 History imipramine HCl 50 mg tablet 50 mg PO QPM 07/01/22 07/01/22 History melatonin 10 mg tablet 10 mg PO HS 07/01/22 07/01/22 History metoprolol succinate 25 mg 12.5 mg PO DAILY 07/01/22 07/01/22 History tablet,extended release 24 hr midodrine 10 mg tablet 5 mg PO 3XWK 07/01/22 07/01/22 History montelukast 10 mg tablet 10 mg PO PM 07/01/22 07/01/22 History omega-3 fatty acids 1,000 mg 1,000 mg PO BID 07/01/22 07/01/22 History capsule sacubitril 24 mg-valsartan 26 mg 1 tab PO BID 07/01/22 07/01/22 History tablet (Entresto) sertraline 25 mg tablet 25 mg PO DAILY 07/01/22 07/01/22 History Patient History Medical History Atrial fibrillation Depression Diabetes mellitus Diabetic neuropathy ESRD (end stage renal disease) on dialysis GERD (gastroesophageal reflux disease) Gout HLD (hyperlipidemia) HTN (hypertension) Impotence, organic Incontinence Localized primary osteoarthritis of left lower leg (01/10/13) Neoplasm of prostate Prostate cancer Sleep apnea Family History Other Family history non-contributory Social History Smoking Status: Former smoker Tobacco Type: Smokeless Tobacco (Dip or Chew) Second Hand Exposure: No; Do You Dip or Chew Tobacco: Yes; Tobacco Cessation Education Requested by Patient: No Hx Alcohol Use: No Hx Substance Use: No Preferred Language: Guamanian Communication Ability: Effective 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 Physical Exam Constitutional: WD/WN, vitals as above no acute distress Eyes: + anicteric sclerae ENMT: Ears: no hearing impairment Neck: normal visual inspection Respiratory: no respiratory distress Auscultation: lungs clear to auscultation bilaterally Cardiovascular: RRR, no murmur, no edema Extremities: + AV fistula (left BC AVF with thrill and bruit.); no edema Gastrointestinal (Abdomen): Inspection/Auscultation: abdomen normal to inspection Percussion/Palpation: abdomen soft; abdomen nontender Musculoskeletal: Extremities: extremities normal to inspection Skin: no rashes Neurologic: no focal motor deficits Psychiatric: Orientation: alert and oriented x 3 Affect: euthymic affect Results & Data ([place]) Vital Signs (Past 12 Hours) Vital Signs Temp Pulse Resp BP Pulse Ox O2 Del Method 07/02/22 07:16 37.0 C 72 18 143/73 H 92 Room Air 07/01/22 23:26 36.9 C 71 16 117/68 91 Room Air PG Care Time/CCT Total # of Minutes Spent Total Time Spent with Patient: Total time spent is greater than 50% in coordination of care (as documented) at patient's floor/unit and/or counseling patient: Coding Level of Care Code 56433 Office/OBS Consult Lvl 4 Diagnoses ESRD (end stage renal disease) on dialysis N18.6; Z99.2 HTN (hypertension) I10 Closed trimalleolar fracture of right ankle S82.851A Diabetes mellitus E11.9
[2022-07-02 10:40] LABS: BUN Creatinine Ratio 4.7 (10-20); Calcium 9.1 mg/dl (8.5-10.1); Creatinine Clr Calc Pharmacy 18.8 ml/min; Est GFR (African American) 14.1 ml/min; Est GFR (Non-African American) 12.1 ml/min; Potassium 3.7 mmol/L (3.5-5.1)
[2022-07-02] MEDS: ACETAMINOPHEN 500 MG TAB PO PRN ×2 (11:11→17:52)
[2022-07-02] MEDS ORDERED: Nursing to Pharmacy Communication SCH (11:15)
--- NOTE | 2022-07-02 12:01 | Electrocardiogram Report ---
Test Reason : Blood Pressure : / mmHG Vent. Rate : 067 BPM Atrial Rate : 067 BPM P-R Int : 182 ms QRS Dur : 116 ms QT Int : 506 ms P-R-T Axes : 012 -25 075 degrees QTc Int : 534 ms Sinus rhythm with occasional Premature ventricular complexes Prolonged QT Abnormal ECG When compared with ECG of 02-NOV-2014 16:34, Premature ventricular complexes are now Present Questionable change in QRS duration Confirmed by Jimi Santana ([id number]) on 07/02/2022 12:01:24 PM Referred By: REFERRED SELF Confirmed By:Pedro Santana
--- NOTE | 2022-07-02 15:50 | Hospitalist Progress Note ---
Date of Service July 02, 2022 Assessment & Plan (1) ESRD (end stage renal disease) on dialysis: Plan: Scheduled for Dialysis tomorrow (2) HTN (hypertension): Plan: BP 143/73 Continue home meds (3) Atrial fibrillation: Plan: Rate controlled, continue eliquis (4) Closed trimalleolar fracture of right ankle: Plan: Admitted with unstable trimalleolar fracture of his right ankle. per Ortho, This will require ORIF for optimal ankle function and ambulation in the future. Non weight bearing till definitive repair next week outpatient (5) Diabetes mellitus: Plan d/c tomorrow after HD to follow up with ortho Admission and Anticipated Discharge Date Admission Date: July 01, 2022 Subjective patient seen and examined, no new complaints Review of Systems Review of Systems: All systems reviewed are negative, apart from the ones contained in the history. Physical Exam Physical Exam: The patient is awake, alert and oriented 3, well developed and well nourished, normocephalic and atraumatic, lying in bed and in no acute distress. HEENT--PERRL, EOMI, mucous membranes and oropharynx mildly dry Neck--supple. No JVD. No bruits. Thyroid normal, trachea midline, no adenopathy. Heart--normal S1 and S2. No murmurs, rubs or gallops. Lungs--clear bilaterally, no respiratory distress, no accessory muscle use. Abdomen--normal bowel sounds and soft. Mild epigastric and left sided abdominal pain Extremities--right lower extremity in cast bandage Dermatologic--normal skin turgor, normal color, no abnormal lymph nodes, no rash. Neurologic--cranial nerves II through XII grossly intact. Rheumatologic--normal range of motion. Psychiatric--normal affect. Results & Data Results & Data ([facility]) Vital Signs (Past 12 Hours) Vital Signs Temp Pulse Resp BP Pulse Ox O2 Del Method 07/02/22 07:16 98.6 F 72 18 143/73 H 92 Room Air PG Care Time/CCT Total # of Minutes Spent Total Time Spent with Patient: Total time spent is greater than 50% in coordination of care (as documented) at patient's floor/unit and/or counseling patient: Coding Level of Care Code 93177 Subseq Hosp Care Lvl 2 Diagnoses ESRD (end stage renal disease) on dialysis N18.6; Z99.2 HTN (hypertension) I10 Atrial fibrillation I48.91 Closed trimalleolar fracture of right ankle S82.851A Diabetes mellitus E11.9 Time Spent (min) 35
[2022-07-02] MEDS: MONTELUKAST SODIUM 10 MG TABLET PO SCH (20:46)
[2022-07-02] MEDS: IMIPRAMINE HCL 50 MG TAB PO SCH (20:47)
[2022-07-02] MEDS: MELATONIN 3 MG TAB PO SCH (20:47)
[2022-07-03] MEDS ORDERED: EPOETIN ALFA 10,000 UNITS/ML VIAL IV SCH (07:00)
[2022-07-03] MEDS: ACETAMINOPHEN 500 MG TAB PO PRN ×4 (08:50→23:59)
[2022-07-03] MEDS: OMEGA-3 (PURIFIED FISH OIL) 1 GM CAP PO SCH ×2 (08:51→20:12)
[2022-07-03] MEDS: VALSARTAN/SACUBITRIL 26/24MG TAB PO SCH ×2 (08:51→20:11)
[2022-07-03] MEDS: FUROSEMIDE 40 MG TAB PO SCH (08:52)
[2022-07-03] MEDS: CETIRIZINE HCL 10 MG TABLET PO SCH (08:53)
[2022-07-03] MEDS: FAMOTIDINE 20 MG TAB PO SCH (08:54)
[2022-07-03] MEDS: METOPROLOL SUCC 25MG EXT REL TAB PO SCH (08:54)
[2022-07-03] MEDS: ATORVASTATIN 40 MG TAB PO SCH (08:55)
[2022-07-03] MEDS: AMIODARONE 200 MG TAB PO SCH (08:55)
[2022-07-03] MEDS: CHOLECALCIFEROL 1,000 UNITS 25 MCG TAB PO SCH (08:55)
[2022-07-03] MEDS: VITAMIN B COMPLEX TAB PO SCH (08:55)
[2022-07-03] MEDS: MIDODRINE HCL 2.5 MG TAB PO SCH (08:56)
[2022-07-03] MEDS: NEPHROCAPS PO SCH (08:56)
[2022-07-03] MEDS: INSULIN ASPART PER UNIT SC SCH ×4 (08:57→20:53)
--- NOTE | 2022-07-03 09:29 | Nephrology Progress Note ---
Date of Service July 03, 2022 Assessment & Plan (1) ESRD (end stage renal disease) on dialysis: (2) HTN (hypertension): (3) Closed trimalleolar fracture of right ankle: (4) Diabetes mellitus: Plan 71 y o m with ESRD on HD, MWF, admitted after a fall and ankle fracture, s/p reduction , alignment and cast. Had HD yesterday, BP, volume status and electrolyte acceptable. --plan for dialysis today as regular MWF schedule, UF to goal estimated dry weight. --continued Nephrocaps and renal diet --dose medications for GFR less than 10 --Avoid IV fluid --YOAN with dialysis today. over a to be discharged when medically stable Will follow. Admission and Anticipated Discharge Date Admission Date: July 01, 2022 Niall Kline was seen and evaluated this morning. He has been feeling well. No shortness of breath or chest pain. Blood Pressure status stable, electrolyte, volume status acceptable. Review of Systems Review of Systems: DEtail ROS was otherwise unremarkable. Physical Exam Constitutional: WD/WN, vitals as above no acute distress Eyes: + anicteric sclerae ENMT: Ears: no hearing impairment Respiratory: no respiratory distress Auscultation: lungs clear to auscultation bilaterally Cardiovascular: RRR, no murmur, no edema Extremities: + AV fistula (left BC AVF with thrill and bruit.) Musculoskeletal: Extremities: extremities normal to inspection Skin: no rashes Neurologic: no focal motor deficits Psychiatric: Orientation: alert and oriented x 3 Affect: euthymic affect Results & Data ([facility]) Vital Signs (Past 12 Hours) Vital Signs Temp Pulse Resp BP Pulse Ox O2 Del Method 07/03/22 07:52 37.1 C 75 18 140/64 93 Room Air 07/02/22 21:47 37.1 C 71 18 128/61 92 PG Care Time/CCT Total # of Minutes Spent Total Time Spent with Patient: Total time spent is greater than 50% in coordination of care (as documented) at patient's floor/unit and/or counseling patient: Coding Level of Care Code 54633 Subseq Hosp Care Lvl 3 Diagnoses ESRD (end stage renal disease) on dialysis N18.6; Z99.2 HTN (hypertension) I10 Closed trimalleolar fracture of right ankle S82.851A Diabetes mellitus E11.9
[2022-07-03] MEDS: SERTRALINE HCL 50 MG TABLET PO SCH (10:38)
--- NOTE | 2022-07-03 14:15 | Hospitalist Progress Note ---
Date of Service July 03, 2022 Assessment & Plan (1) Closed trimalleolar fracture of right ankle: Plan: Admitted with unstable trimalleolar fracture of his right ankle. per Ortho, This will require ORIF for optimal ankle function and ambulation in the future. Non weight bearing till definitive repair next week outpatient patient now 2 person assist, unble to take care of him at home will need rehab placement (2) ESRD (end stage renal disease) on dialysis: Plan: ESRD on HD MWF session Nephrology on consult (3) HTN (hypertension): Plan: BP 112/61 Continue home meds (4) Atrial fibrillation: Plan: Rate controlled, continue eliquis (5) Diabetes mellitus: Plan rehab when accepted, unable to take care of him at home Admission and Anticipated Discharge Date Admission Date: July 01, 2022 Subjective patient seen and examined, was about to go for dialysis Review of Systems Review of Systems: All systems reviewed are negative, apart from the ones contained in the history. Physical Exam Physical Exam: The patient is awake, alert and oriented 3, well developed and well nourished, normocephalic and atraumatic, lying in bed and in no acute distress. HEENT--PERRL, EOMI, mucous membranes and oropharynx mildly dry Neck--supple. No JVD. No bruits. Thyroid normal, trachea midline, no adenopathy. Heart--normal S1 and S2. No murmurs, rubs or gallops. Lungs--clear bilaterally, no respiratory distress, no accessory muscle use. Abdomen--normal bowel sounds and soft. Mild epigastric and left sided abdominal pain Extremities--right lower extremity in cast bandage Dermatologic--normal skin turgor, normal color, no abnormal lymph nodes, no rash. Neurologic--cranial nerves II through XII grossly intact. Rheumatologic--normal range of motion. Psychiatric--normal affect. Results & Data Results & Data ([facility]) Vital Signs (Past 12 Hours) Vital Signs Temp Pulse Pulse Pulse Resp BP BP 07/03/22 12:30 68 112/61 07/03/22 12:00 68 111/56 L 07/03/22 11:30 68 110/56 L 07/03/22 11:00 70 116/68 07/03/22 10:57 71 114/63 07/03/22 10:44 97.7 F 75 07/03/22 07:52 98.8 F 75 18 140/64 Pulse Ox O2 Del Method 07/03/22 12:30 07/03/22 12:00 07/03/22 11:30 07/03/22 11:00 07/03/22 10:57 07/03/22 10:44 07/03/22 07:52 93 Room Air PG Care Time/CCT Total # of Minutes Spent Total Time Spent with Patient: Total time spent is greater than 50% in coordination of care (as documented) at patient's floor/unit and/or counseling patient: Coding Level of Care Code 93239 Subseq Hosp Care Lvl 2 Diagnoses Closed trimalleolar fracture of right ankle S82.851A ESRD (end stage renal disease) on dialysis N18.6; Z99.2 HTN (hypertension) I10 Atrial fibrillation I48.91 Diabetes mellitus E11.9 Time Spent (min) 35
[2022-07-03] MEDS: POLYETHYLENE (MIRALAX) 17 GM PACK PO PRN (15:48)
[2022-07-03] MEDS: MONTELUKAST SODIUM 10 MG TABLET PO SCH (20:12)
[2022-07-03] MEDS: MELATONIN 3 MG TAB PO SCH (20:12)
[2022-07-03] MEDS: allopurinoL 100 MG TAB PO SCH (20:13)
[2022-07-03] MEDS: IMIPRAMINE HCL 50 MG TAB PO SCH (20:13)
[2022-07-03] MEDS: APIXABAN 5 MG TABLET PO SCH (20:14)
--- NOTE | 2022-07-03 23:49 | Communication Note ---
Date of Service: July 03, 2022 Notified of temp of 100.6F. Ordering blood cultures, cbc, cmp, mg, phos, procal. No obvious infectious symptoms/signs per nursing. 89% saturation on room air, nonadherent to qhs cpap. Dialysis patient. Check cxr. cxr per my read: poor quality and decreased inspiratory effort vs pulm edema, more likely the former. No focal infiltrate.
[2022-07-04 01:03] LABS: Basophils # (auto) 0.06 K/uL (0-0.2); Basophils % (auto) 0.8 %; Eosinophils # (auto) 0.31 K/uL (0-0.50); Eosinophils % (auto) 3.9 %; Hematocrit (blood only) 26.7 % (40.1-51.0); Hemoglobin 8.6 g/dl (14.0-18.0); Immature Granulocytes # (auto) 0.04 K/uL (0.00-0.02); Immature Granulocytes % (auto) 0.5 %; Lymphocytes # (auto) 0.81 K/uL (1.2-3.4); Lymphocytes % (auto) 10.1 %; Mean Corpuscular Hemoglobin 32.6 pg (25.0-34.0); Mean Corpuscular Hgb Conc 32.2 g/dL (32.0-36.0); Mean Corpuscular Volume 101.1 fL (80.0-100.0); Monocytes # (auto) 0.89 K/uL (0.24-0.82); Monocytes % (auto) 11.1 %; Neutrophils # (auto) 5.88 K/uL (1.4-6.5); Neutrophils % (auto) 73.6 %; Platelet Count 224 K/uL (130-400); RDW Coefficient of Variation 17.2 % (11.5-14.5); RDW Standard Deviation 63.5 fL (36.4-46.3); Red Blood Count 2.64 M/uL (4.63-6.08); White Blood Count 7.99 K/ul (4.8-10.8)
[2022-07-04 01:21] LABS: Albumin Globulin Ratio 1.3 (0.9-2); Albumin Level 3.6 gm/dl (3.4-5.0); BUN Creatinine Ratio 4.9 (10-20); Bilirubin,Total 0.6 mg/dl (0.2-1.0); Calcium 9.1 mg/dl (8.5-10.1); Creatinine Clr Calc Pharmacy 19.5 ml/min; Est GFR (African American) 14.8 ml/min; Est GFR (Non-African American) 12.8 ml/min; Globulin 2.8 gm/dl (2.5-4.0); Phosphorus 3.1 mg/dl (2.5-4.9); Total Protein 6.4 gm/dl (6.0-8.3)
[2022-07-04] MEDS: CHOLECALCIFEROL 1,000 UNITS 25 MCG TAB PO SCH (09:01)
[2022-07-04] MEDS: FAMOTIDINE 20 MG TAB PO SCH (09:02)
[2022-07-04] MEDS: APIXABAN 5 MG TABLET PO SCH ×2 (09:02→20:54)
[2022-07-04] MEDS: VITAMIN B COMPLEX TAB PO SCH (09:02)
[2022-07-04] MEDS: OMEGA-3 (PURIFIED FISH OIL) 1 GM CAP PO SCH ×2 (09:02→20:54)
[2022-07-04] MEDS: NEPHROCAPS PO SCH (09:02)
[2022-07-04] MEDS: VALSARTAN/SACUBITRIL 26/24MG TAB PO SCH ×2 (09:02→20:53)
[2022-07-04] MEDS: FUROSEMIDE 40 MG TAB PO SCH (09:02)
[2022-07-04] MEDS: METOPROLOL SUCC 25MG EXT REL TAB PO SCH (09:02)
[2022-07-04] MEDS: ATORVASTATIN 40 MG TAB PO SCH (09:02)
[2022-07-04] MEDS: SERTRALINE HCL 50 MG TABLET PO SCH (09:02)
[2022-07-04] MEDS: CETIRIZINE HCL 10 MG TABLET PO SCH (09:02)
[2022-07-04] MEDS: AMIODARONE 200 MG TAB PO SCH (09:02)
[2022-07-04] MEDS: INSULIN ASPART PER UNIT SC SCH ×4 (09:08→20:57)
--- NOTE | 2022-07-04 11:02 | XRay Report ---
XR chest 1V portable CLINICAL HISTORY: hypoxia 89 on room air. TECHNIQUE: Single frontal radiograph of the chest was obtained. Comparison: Comparison is made to chest radiograph 11/03/2012 FINDINGS: Median sternotomy wires are unchanged. Cardiomegaly is noted. The aortic arch is calcified. Prominenc e and cephalization of the vasculature is seen. Lungs are underinflated. No evidence of pleural effus ion or pneumothorax. IMPRESSION: Cardiomegaly with mild pulmonary edema. ACT 112: Negative or not required by law. Electronically signed by: Trung Linn M.D. 07/04/2022 11:01 AM
--- NOTE | 2022-07-04 11:42 | Nephrology Progress Note ---
Date of Service July 04, 2022 Assessment & Plan (1) ESRD (end stage renal disease) on dialysis: Plan: ESRD on HD MWF. Completed treatment yesterday with adequate UF and clearance. Electrolytes controlled. Volume status acceptable. AVF functioning well. Medications appropriately dosed for IHD. Next dialysis planned for Wednesday. (2) HTN (hypertension): Plan: BP acceptable. Remains on Entresto and metoprolol. Volume status controlled. (3) Closed trimalleolar fracture of right ankle: Plan: Anticipate discharge to [facility] for rehab when bed available. ORIF delayed due to anticoagulation. (4) Anemia: Plan: Epogen 66382 units provided with HD yesterday. Hgb stable. Iron stores with next labs. (5) Atrial fibrillation: Plan: Anticoagulated. Remains on amiodarone. No symptoms. Admission and Anticipated Discharge Date Admission Date: July 01, 2022 Subjective Tmax 38.1 overnight. Denies subjective fevers or chills. Raisa denies pain. Tolerated HD well yesterday. No complications with treatment. Breathing comfortably today. Using O2 via NC while sleeping/resting. Review of Systems Review of Systems: All systems reviewed & are unremarkable except as noted in HPI & below Physical Exam Constitutional: well developed; no acute distress Eyes: + anicteric sclerae; no corneal abnormality ENMT: Mouth: no oral mucosal abnormality and oral mucous membranes not dry Neck: normal visual inspection and trachea midline Respiratory: normal respiratory effort Auscultation: lungs clear to auscultation bilaterally Cardiovascular: Rate/Rhythm: + irregularly irregular Heart Sounds: normal S1 and normal S2 Extremities: + AV fistula; no edema Musculoskeletal: Extremities: no cyanosis and no clubbing Skin: normal turgor; no lesions Neurologic: Motor/Sensory: no tremor and no asterixis Psychiatric: Orientation: alert and oriented x 3 Results & Data ([facility]) Vital Signs (Past 12 Hours) Vital Signs Temp Pulse Pulse Resp BP Pulse Ox O2 Del Method 07/04/22 08:26 Nasal Cannula 07/04/22 07:38 37.3 C 69 18 138/66 93 Nasal Cannula 07/04/22 02:30 37.5 C 07/03/22 23:48 72 18 94 Nasal Cannula O2 Flow Rate 07/04/22 08:26 2 07/04/22 07:38 2 07/04/22 02:30 07/03/22 23:48 2 Laboratory Results Laboratory Results - last 24 hr 07/03/22 07/03/22 07/04/22 17:37 20:50 00:39 WBC 7.99 RBC 2.64 L Hgb 8.6 L Hct 26.7 L MCV 101.1 H MCH 32.6 MCHC 32.2 RDW Std Deviation 63.5 H RDW Coeff of Charlie 17.2 H Plt Count 224 MPV 9.0 L Immature Gran % (Auto) 0.5 Neut % (Auto) 73.6 Lymph % (Auto) 10.1 Smyth % (Auto) 11.1 Eos % (Auto) 3.9 Baso % (Auto) 0.8 Neut # (Auto) 5.88 Lymph # (Auto) 0.81 L Smyth # (Auto) 0.89 H Eos # (Auto) 0.31 Baso # (Auto) 0.06 Immature Gran # (Auto) 0.04 H Sodium Potassium Chloride Carbon Dioxide Anion Gap BUN Creatinine Est Cr Clr Drug Dosing Est GFR ( Amer) Est GFR (Non-Af Amer) BUN/Creatinine Ratio Glucose POC Glucose 104 H 141 H Calcium Phosphorus Total Bilirubin AST ALT Alkaline Phosphatase Total Protein Albumin Globulin Albumin/Globulin Ratio Procalcitonin 07/04/22 07/04/22 07/04/22 00:39 00:39 08:32 WBC RBC Hgb Hct MCV MCH MCHC RDW Std Deviation RDW Coeff of Charlie Plt Count MPV Immature Gran % (Auto) Neut % (Auto) Lymph % (Auto) Smyth % (Auto) Eos % (Auto) Baso % (Auto) Neut # (Auto) Lymph # (Auto) Smyth # (Auto) Eos # (Auto) Baso # (Auto) Immature Gran # (Auto) Sodium 138 Potassium 4.0 Chloride 97 L Carbon Dioxide 32 Anion Gap 9 BUN 21 Creatinine 4.31 H Est Cr Clr Drug Dosing 19.5 Est GFR ( Amer) 14.8 Est GFR (Non-Af Amer) 12.8 BUN/Creatinine Ratio 4.9 L Glucose 138 H POC Glucose 125 H Calcium 9.1 Phosphorus 3.1 Total Bilirubin 0.6 AST 7 L ALT 5 L Alkaline Phosphatase 64 Total Protein 6.4 Albumin 3.6 Globulin 2.8 Albumin/Globulin Ratio 1.3 Procalcitonin 0.21 PG Care Time/CCT Total # of Minutes Spent Total Time Spent with Patient: Total time spent is greater than 50% in coordination of care (as documented) at patient's floor/unit and/or counseling patient: Coding Level of Care Code 15507 Subseq Hosp Care Lvl 3 Diagnoses ESRD (end stage renal disease) on dialysis N18.6; Z99.2 HTN (hypertension) I10 Closed trimalleolar fracture of right ankle S82.851A Anemia D64.9 Atrial fibrillation I48.91
[2022-07-04] MEDS ORDERED: FUROSEMIDE 40 MG/4 ML VIAL IV ONE (12:48)
--- NOTE | 2022-07-04 13:51 | Hospitalist Progress Note ---
Date of Service July 04, 2022 Assessment & Plan (1) Closed trimalleolar fracture of right ankle: Plan: Admitted with unstable trimalleolar fracture of his right ankle. per Ortho, This will require ORIF for optimal ankle function and ambulation in the future. Non weight bearing till definitive repair next week outpatient patient now 2 person assist, unble to take care of him at home will need rehab placement continue pain control (2) ESRD (end stage renal disease) on dialysis: Plan: ESRD on HD MWF session Nephrology on consult (3) HTN (hypertension): Plan: BP 138/66 Continue home meds (4) Atrial fibrillation: Plan: Rate controlled, continue eliquis (5) Pulmonary edema: Plan: seen on chest x ray patients SOB is at baseline will give a dose of lasix 40mg IV continue home dose of lasix 40mg PO (6) Diabetes mellitus: Plan rehab when accepted, unable to take care of him at home Admission and Anticipated Discharge Date Admission Date: July 01, 2022 Subjective patient seen and examined today, no new complaints Review of Systems Review of Systems: All systems reviewed are negative, apart from the ones contained in the history. Physical Exam Physical Exam: The patient is awake, alert and oriented 3, well developed and well nourished, normocephalic and atraumatic, lying in bed and in no acute distress. HEENT--PERRL, EOMI, mucous membranes and oropharynx mildly dry Neck--supple. No JVD. No bruits. Thyroid normal, trachea midline, no adenopathy. Heart--normal S1 and S2. No murmurs, rubs or gallops. Lungs--clear bilaterally, no respiratory distress, no accessory muscle use. Abdomen--normal bowel sounds and soft. Mild epigastric and left sided abdominal pain Extremities--right lower extremity in cast bandage Dermatologic--normal skin turgor, normal color, no abnormal lymph nodes, no rash. Neurologic--cranial nerves II through XII grossly intact. Rheumatologic--normal range of motion. Psychiatric--normal affect. Results & Data Results & Data ([facility]) Vital Signs (Past 12 Hours) Vital Signs Temp Pulse Resp BP Pulse Ox O2 Del Method O2 Flow Rate 07/04/22 08:26 Nasal Cannula 2 07/04/22 07:38 99.1 F 69 18 138/66 93 Nasal Cannula 2 07/04/22 02:30 99.5 F PG Care Time/CCT Total # of Minutes Spent Total Time Spent with Patient: Total time spent is greater than 50% in coordination of care (as documented) at patient's floor/unit and/or counseling patient: Coding Level of Care Code 97433 Subseq Hosp Care Lvl 2 Diagnoses Closed trimalleolar fracture of right ankle S82.851A ESRD (end stage renal disease) on dialysis N18.6; Z99.2 HTN (hypertension) I10 Atrial fibrillation I48.91 Pulmonary edema J81.1 Diabetes mellitus E11.9 Time Spent (min) 35
[2022-07-04] MEDS: POLYETHYLENE (MIRALAX) 17 GM PACK PO PRN (17:41)
[2022-07-04] MEDS: IMIPRAMINE HCL 50 MG TAB PO SCH (20:54)
[2022-07-04] MEDS: MELATONIN 3 MG TAB PO SCH (20:54)
[2022-07-04] MEDS: MONTELUKAST SODIUM 10 MG TABLET PO SCH (20:54)
[2022-07-05 06:54] LABS: Hematocrit (blood only) 26.6 % (40.1-51.0); Hemoglobin 8.6 g/dl (14.0-18.0); Mean Corpuscular Hemoglobin 32.6 pg (25.0-34.0); Mean Corpuscular Hgb Conc 32.3 g/dL (32.0-36.0); Mean Corpuscular Volume 100.8 fL (80.0-100.0); Mean Platelet Volume 9.3 fL (9.4-12.4); Platelet Count 232 K/uL (130-400); RDW Coefficient of Variation 17.1 % (11.5-14.5); RDW Standard Deviation 62.6 fL (36.4-46.3); Red Blood Count 2.64 M/uL (4.63-6.08); White Blood Count 8.23 K/ul (4.8-10.8)
[2022-07-05 07:39] LABS: BUN Creatinine Ratio 6.7 (10-20); Calcium 9.1 mg/dl (8.5-10.1); Creatinine Clr Calc Pharmacy 14.1 ml/min; Est GFR (Non-African American) 8.7 ml/min; Potassium 3.8 mmol/L (3.5-5.1)
[2022-07-05] MEDS: APIXABAN 5 MG TABLET PO SCH ×2 (08:55→19:55)
[2022-07-05] MEDS: ATORVASTATIN 40 MG TAB PO SCH (08:55)
[2022-07-05] MEDS: AMIODARONE 200 MG TAB PO SCH (08:55)
[2022-07-05] MEDS: FAMOTIDINE 20 MG TAB PO SCH (08:55)
[2022-07-05] MEDS: NEPHROCAPS PO SCH (08:55)
[2022-07-05] MEDS: CETIRIZINE HCL 10 MG TABLET PO SCH (08:55)
[2022-07-05] MEDS: SERTRALINE HCL 50 MG TABLET PO SCH (08:55)
[2022-07-05] MEDS: CHOLECALCIFEROL 1,000 UNITS 25 MCG TAB PO SCH (08:55)
[2022-07-05] MEDS: FUROSEMIDE 40 MG TAB PO SCH (08:55)
[2022-07-05] MEDS: OMEGA-3 (PURIFIED FISH OIL) 1 GM CAP PO SCH ×2 (08:55→19:56)
[2022-07-05] MEDS: METOPROLOL SUCC 25MG EXT REL TAB PO SCH (08:56)
[2022-07-05] MEDS: VALSARTAN/SACUBITRIL 26/24MG TAB PO SCH ×2 (08:56→19:56)
[2022-07-05] MEDS: VITAMIN B COMPLEX TAB PO SCH (08:56)
[2022-07-05] MEDS: INSULIN ASPART PER UNIT SC SCH ×4 (08:59→21:07)
--- NOTE | 2022-07-05 10:25 | Nephrology Progress Note ---
Date of Service July 05, 2022 Assessment & Plan (1) ESRD (end stage renal disease) on dialysis: Plan: ESRD on HD MWF. Preliminary orders for HD tomorrow entered into the EHR. AVF functioning well. Medications appropriately dosed for IHD. Renal diet with 1 L daily fluid restriction. (2) HTN (hypertension): Plan: BP acceptable. Remains on Entresto and metoprolol. (3) Closed trimalleolar fracture of right ankle: Plan: Anticipate discharge to [facility] for rehab when bed available. ORIF delayed due to anticoagulation. (4) Anemia: Plan: Epogen 56427 units provided with HD . Hgb stable. Iron stores with next labs. (5) Atrial fibrillation: Plan: Anticoagulated. Remains on amiodarone. No symptoms. Admission and Anticipated Discharge Date Admission Date: July 01, 2022 Subjective No acute events overnight. Resting comfortably in bed this AM. Review of Systems Review of Systems: All systems reviewed & are unremarkable except as noted in HPI & below Physical Exam Constitutional: well developed; no acute distress Eyes: + anicteric sclerae; no corneal abnormality ENMT: Mouth: no oral mucosal abnormality and oral mucous membranes not dry Neck: normal visual inspection and trachea midline Respiratory: normal respiratory effort Auscultation: lungs clear to auscultation bilaterally and + rales Cardiovascular: Rate/Rhythm: regular rate and + irregularly irregular Heart Sounds: normal S1 and normal S2 Extremities: + AV fistula; no edema Musculoskeletal: Extremities: no cyanosis and no clubbing Skin: normal turgor; no lesions Neurologic: Motor/Sensory: no tremor and no asterixis Psychiatric: Orientation: alert and oriented x 3 Results & Data ([facility]) Vital Signs (Past 12 Hours) Vital Signs Temp Pulse Resp BP Pulse Ox O2 Del Method 07/05/22 07:09 37.6 C H 70 18 144/68 H 92 Room Air Laboratory Results Laboratory Results - last 24 hr 07/04/22 07/04/22 07/04/22 12:22 17:16 20:40 WBC RBC Hgb Hct MCV MCH MCHC RDW Std Deviation RDW Coeff of Charlie Plt Count MPV Sodium Potassium Chloride Carbon Dioxide Anion Gap BUN Creatinine Est Cr Clr Drug Dosing Est GFR ( Amer) Est GFR (Non-Af Amer) BUN/Creatinine Ratio Glucose POC Glucose 150 H 154 H 153 H Calcium 07/05/22 07/05/22 07/05/22 06:06 06:06 08:22 WBC 8.23 RBC 2.64 L Hgb 8.6 L Hct 26.6 L MCV 100.8 H MCH 32.6 MCHC 32.3 RDW Std Deviation 62.6 H RDW Coeff of Charlie 17.1 H Plt Count 232 MPV 9.3 L Sodium 134 L Potassium 3.8 Chloride 95 L Carbon Dioxide 30 Anion Gap 9 BUN 40 H Creatinine 5.95 H* D Est Cr Clr Drug Dosing 14.1 Est GFR ( Amer) 10.0 Est GFR (Non-Af Amer) 8.7 BUN/Creatinine Ratio 6.7 L Glucose 145 H POC Glucose 143 H Calcium 9.1 PG Care Time/CCT Total # of Minutes Spent Total Time Spent with Patient: Total time spent is greater than 50% in coordination of care (as documented) at patient's floor/unit and/or counseling patient: Coding Level of Care Code 28905 Subseq Hosp Care Lvl 3 Diagnoses ESRD (end stage renal disease) on dialysis N18.6; Z99.2 HTN (hypertension) I10 Closed trimalleolar fracture of right ankle S82.851A Anemia D64.9 Atrial fibrillation I48.91
--- NOTE | 2022-07-05 13:54 | Hospitalist Progress Note ---
Date of Service July 05, 2022 Assessment & Plan (1) Closed trimalleolar fracture of right ankle: Plan: Admitted with unstable trimalleolar fracture of his right ankle. per Ortho, This will require ORIF for optimal ankle function and ambulation in the future. Non weight bearing till definitive repair next week outpatient (to let the edema resolve) patient now 2 person assist, unable to take care of him at home will need rehab placement continue pain control (2) ESRD (end stage renal disease) on dialysis: Plan: ESRD on HD MWF session Nephrology on consult (3) HTN (hypertension): Plan: BP 144/68 Continue home meds (4) Atrial fibrillation: Plan: Rate controlled, continue eliquis (5) Pulmonary edema: Plan: seen on chest x ray patients SOB is at baseline will give a dose of lasix 40mg IV continue home dose of lasix 40mg PO (6) Diabetes mellitus: Plan rehab when accepted, unable to take care of him at home till outpatient surgery Admission and Anticipated Discharge Date Admission Date: July 01, 2022 Subjective patient seen and examined, no new complaints Review of Systems Review of Systems: All systems reviewed are negative, apart from the ones contained in the history. Physical Exam Physical Exam: The patient is awake, alert and oriented 3, well developed and well nourished, normocephalic and atraumatic, lying in bed and in no acute distress. HEENT--PERRL, EOMI, mucous membranes and oropharynx mildly dry Neck--supple. No JVD. No bruits. Thyroid normal, trachea midline, no adenopathy. Heart--normal S1 and S2. No murmurs, rubs or gallops. Lungs--clear bilaterally, no respiratory distress, no accessory muscle use. Abdomen--normal bowel sounds and soft. Mild epigastric and left sided abdominal pain Extremities--right lower extremity in cast bandage Dermatologic--normal skin turgor, normal color, no abnormal lymph nodes, no rash. Neurologic--cranial nerves II through XII grossly intact. Rheumatologic--normal range of motion. Psychiatric--normal affect. Results & Data Results & Data ([facility]) Vital Signs (Past 12 Hours) Vital Signs Temp Pulse Resp BP Pulse Ox O2 Del Method 07/05/22 11:32 CPAP 07/05/22 07:09 99.7 F H 70 18 144/68 H 92 Room Air PG Care Time/CCT Total # of Minutes Spent Total Time Spent with Patient: Total time spent is greater than 50% in coordination of care (as documented) at patient's floor/unit and/or counseling patient: Coding Level of Care Code 07491 Subseq Hosp Care Lvl 2 Diagnoses Closed trimalleolar fracture of right ankle S82.851A ESRD (end stage renal disease) on dialysis N18.6; Z99.2 HTN (hypertension) I10 Atrial fibrillation I48.91 Pulmonary edema J81.1 Diabetes mellitus E11.9 Time Spent (min) 35
[2022-07-05] MEDS: ACETAMINOPHEN 500 MG TAB PO PRN (18:12)
[2022-07-05] MEDS: POLYETHYLENE (MIRALAX) 17 GM PACK PO PRN (19:29)
[2022-07-05] MEDS: MELATONIN 3 MG TAB PO SCH (19:56)
[2022-07-05] MEDS: MONTELUKAST SODIUM 10 MG TABLET PO SCH (19:56)
[2022-07-05] MEDS: IMIPRAMINE HCL 50 MG TAB PO SCH (20:56)
[2022-07-05] MEDS: DOCUSATE SODIUM/SENNA 50/8.6MG TAB PO SCH (20:56)
[2022-07-06 08:21] LABS: Hemoglobin 8.9 g/dl (14.0-18.0)
[2022-07-06 08:46] LABS: Iron 46 mcg/dl (35-175); Total Iron Binding Cap Calc 191 mcg/dl (250-450); Transferrin (FE) Percent Satur 24 % (20-50); Unsaturated Iron Binding Cap 145 mcg/dl (155-355)
[2022-07-06 08:55] LABS: Albumin Level 3.5 gm/dl (3.4-5.0); BUN Creatinine Ratio 7.2 (10-20); Calcium 9.1 mg/dl (8.5-10.1); Creatinine Clr Calc Pharmacy 11.4 ml/min; Est GFR (African American) 7.8 ml/min; Est GFR (Non-African American) 6.7 ml/min; Potassium 4.1 mmol/L (3.5-5.1)
[2022-07-06] MEDS: AMIODARONE 200 MG TAB PO SCH (09:02)
[2022-07-06] MEDS: APIXABAN 5 MG TABLET PO SCH ×2 (09:03→21:07)
[2022-07-06] MEDS: VITAMIN B COMPLEX TAB PO SCH (09:03)
[2022-07-06] MEDS: OMEGA-3 (PURIFIED FISH OIL) 1 GM CAP PO SCH ×2 (09:04→21:07)
[2022-07-06] MEDS: SERTRALINE HCL 50 MG TABLET PO SCH (09:04)
[2022-07-06] MEDS: FAMOTIDINE 20 MG TAB PO SCH (09:04)
[2022-07-06] MEDS: CHOLECALCIFEROL 1,000 UNITS 25 MCG TAB PO SCH (09:04)
[2022-07-06] MEDS: DOCUSATE SODIUM/SENNA 50/8.6MG TAB PO SCH (09:04)
[2022-07-06] MEDS: CETIRIZINE HCL 10 MG TABLET PO SCH (09:04)
[2022-07-06] MEDS: ATORVASTATIN 40 MG TAB PO SCH (09:04)
[2022-07-06] MEDS: INSULIN ASPART PER UNIT SC SCH ×4 (09:07→20:40)
[2022-07-06] MEDS: MIDODRINE HCL 2.5 MG TAB PO SCH (09:22)
[2022-07-06 09:25] LABS: Ferritin 806.6 ng/ml (8-388)
--- NOTE | 2022-07-06 10:15 | Nephrology Progress Note ---
Date of Service July 06, 2022 Assessment & Plan (1) ESRD (end stage renal disease) on dialysis: Plan: ESRD on HD MWF. Orders for HD today entered into the EHR and reviewed with RN. Raisa was seen and evaluated during treatment. Tolerating HD well. Qb at goal. UF 3+ L as tolerated. Medications appropriately dosed for IHD. Renal diet with 1 L daily fluid restriction. (2) HTN (hypertension): Plan: BP acceptable. Remains on Entresto and metoprolol. (3) Closed trimalleolar fracture of right ankle: Plan: Anticipate discharge to [facility] for rehab when bed available. ORIF delayed due to anticoagulation. (4) Anemia: Plan: Epogen 67515 units provided with HD 07/03. Hgb stable. Iron stores acceptable. (5) Atrial fibrillation: Plan: Anticoagulated. Remains on amiodarone. No symptoms. Admission and Anticipated Discharge Date Admission Date: July 01, 2022 Subjective No acute events overnight. Raisa was seen and evaluated on HD this AM. He is tolerating HD well. Some access alarms but Qb at goal. No complaints. Review of Systems Review of Systems: All systems reviewed & are unremarkable except as noted in HPI & below Physical Exam Constitutional: well developed; no acute distress Eyes: + anicteric sclerae; no corneal abnormality ENMT: Mouth: no oral mucosal abnormality and oral mucous membranes not dry Neck: normal visual inspection and trachea midline Respiratory: normal respiratory effort Auscultation: lungs clear to auscultation bilaterally Cardiovascular: Rate/Rhythm: regular rate and + irregularly irregular Heart Sounds: normal S1 and normal S2 Extremities: + edema and + AV fistula Musculoskeletal: Extremities: no cyanosis and no clubbing Skin: normal turgor; no lesions Neurologic: Motor/Sensory: no tremor and no asterixis Psychiatric: Orientation: alert and oriented x 3 Results & Data ([facility]) Vital Signs (Past 12 Hours) Vital Signs Temp Pulse Resp BP Pulse Ox O2 Del Method 07/06/22 07:22 36.8 C 72 14 137/69 92 Room Air Laboratory Results Laboratory Results - last 24 hr 07/05/22 07/05/22 07/05/22 12:29 17:21 20:57 Hgb Hct Sodium Potassium Chloride Carbon Dioxide Anion Gap BUN Creatinine Est Cr Clr Drug Dosing Est GFR ( Amer) Est GFR (Non-Af Amer) BUN/Creatinine Ratio Glucose POC Glucose 191 H 162 H 133 H Calcium Phosphorus Iron TIBC Unsaturated IBC Transferrin % Sat Ferritin Albumin 07/06/22 07/06/22 07/06/22 07:40 07:40 07:40 Hgb 8.9 L Hct 28.0 L Sodium 134 L Potassium 4.1 Chloride 94 L Carbon Dioxide 30 Anion Gap 10 BUN 53 H Creatinine 7.33 H* D Est Cr Clr Drug Dosing 11.4 Est GFR ( Amer) 7.8 Est GFR (Non-Af Amer) 6.7 BUN/Creatinine Ratio 7.2 L Glucose 145 H POC Glucose Calcium 9.1 Phosphorus 5.0 H Iron 46 TIBC 191 L Unsaturated IBC 145 L Transferrin % Sat 24 Ferritin 806.6 H Albumin 3.5 07/06/22 08:09 Hgb Hct Sodium Potassium Chloride Carbon Dioxide Anion Gap BUN Creatinine Est Cr Clr Drug Dosing Est GFR ( Amer) Est GFR (Non-Af Amer) BUN/Creatinine Ratio Glucose POC Glucose 158 H Calcium Phosphorus Iron TIBC Unsaturated IBC Transferrin % Sat Ferritin Albumin PG Care Time/CCT Total # of Minutes Spent Total Time Spent with Patient: Total time spent is greater than 50% in coordination of care (as documented) at patient's floor/unit and/or counseling patient: Coding Level of Care Code 93444 Subseq Hosp Care Lvl 3 Diagnoses ESRD (end stage renal disease) on dialysis N18.6; Z99.2 HTN (hypertension) I10 Closed trimalleolar fracture of right ankle S82.851A Anemia D64.9 Atrial fibrillation I48.91
[2022-07-06] MEDS: NEPHROCAPS PO SCH (14:22)
[2022-07-06] MEDS: FUROSEMIDE 40 MG TAB PO SCH (14:36)
[2022-07-06] MEDS: VALSARTAN/SACUBITRIL 26/24MG TAB PO SCH ×2 (14:36→21:38)
[2022-07-06] MEDS: METOPROLOL SUCC 25MG EXT REL TAB PO SCH (14:36)
--- NOTE | 2022-07-06 20:11 | Hospitalist Progress Note ---
Date of Service July 06, 2022 Assessment & Plan (1) Closed trimalleolar fracture of right ankle: Plan: See below (2) Atrial fibrillation: Plan: -Patient is unsure if he has A fib. Taking Eliquis. This my first encounter with this patient -Continue amiodarone 200mg QD (3) ESRD (end stage renal disease) on dialysis: Plan: - Appreciate nephrology help with dialysis 3 times a week. (4) Prostate cancer: Plan: - In remission s/p prostatectomy (5) Diabetes mellitus: Plan: -Patient's home regimen held on admission -Continue BSG checks, sliding-scale insulin, hypoglycemic protocol (6) GERD (gastroesophageal reflux disease): Plan: -Continue famotidine 20mg BID (7) HLD (hyperlipidemia): Plan: -Continue atorvastatin 40mg QD. (8) Gout: Plan: -continue allopurinol 100mg BID (9) HTN (hypertension): Plan: -Continue metoprolol 12.5 mg QD, midodrine 5mg 3xwk -Patient is on Entresto BID, Lasix 40mg QD and has had an ECHO recently. Patient does not think he has HF. (10) Diabetic neuropathy: Plan: -Continue at home meds. (11) Depression: Plan: Raise sertraline to 50 mg as mood suboptimally controlled Present on Admission?: Yes Plan Orthopedic surgeon who saw patient last week does not want to do surgery as an inpatient. The patient cannot go to rehab without getting his ankle fixed. Have consulted [facility] orthopedics and they will give me a plan in the morning. I did speak with their PA Ciarra Also I was in touch with case management only regarding this. Admission and Anticipated Discharge Date Admission Date: July 01, 2022 Subjective no complaints. 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 This is longstanding Physical Exam Physical Exam: Alert and pleasant when seen 1940 hrs., very talkative, jokes intermittently, oriented to place and month unable to recall history in detail, lying in bed. Scotty face,moderate obesity Oral mucosa moist No thyromegaly Chest clear to auscultation CVS S1-S2 Extremities trace edema Right ankle in a cast, able to wiggle right toe, 5 or 5 dorsiflexion and plantar flexion left toes Results & Data Results & Data ([facility]) Vital Signs (Past 12 Hours) Vital Signs Temp Pulse Pulse Pulse Resp BP BP 07/06/22 13:00 65 110/56 L 07/06/22 12:30 67 101/56 L 07/06/22 13:53 36.9 C 67 121/59 L 07/06/22 12:00 70 108/58 L 07/06/22 15:15 37.4 C 66 16 121/62 07/06/22 11:30 69 111/62 07/06/22 11:15 70 116/62 07/06/22 11:00 71 99/55 L 07/06/22 10:30 70 116/61 07/06/22 10:00 70 124/65 07/06/22 09:38 37 C 72 Pulse Ox O2 Del Method 07/06/22 13:00 07/06/22 12:30 07/06/22 13:53 07/06/22 12:00 07/06/22 15:15 93 Room Air 07/06/22 11:30 07/06/22 11:15 07/06/22 11:00 07/06/22 10:30 07/06/22 10:00 07/06/22 09:38 Laboratory Results Abnormal lab results 07/05/22 07/06/22 07/06/22 Range/Units 20:57 07:40 07:40 Hgb 8.9 L (14.0-18.0) g/dl Hct 28.0 L (40.1-51.0) % Sodium 134 L (136-145) mmol/L Chloride 94 L (98-107) mmol/L BUN 53 H (6-23) mg/dl Creatinine 7.33 H* D (0.6-1.4) mg/dl BUN/Creatinine Ratio 7.2 L (10-20) Glucose 145 H (70-99(Fasting)) mg/dl POC Glucose 133 H (70-99) mg/dl Phosphorus 5.0 H (2.5-4.9) mg/dl TIBC (250-450) mcg/dl Unsaturated IBC (155-355) mcg/dl Ferritin 806.6 H (8-388) ng/ml 11/03/2007/06/22 07/06/22 Range/Units 07:40 08:09 13:58 Hgb (14.0-18.0) g/dl Hct (40.1-51.0) % Sodium (136-145) mmol/L Chloride (98-107) mmol/L BUN (6-23) mg/dl Creatinine (0.6-1.4) mg/dl BUN/Creatinine Ratio (10-20) Glucose (70-99(Fasting)) mg/dl POC Glucose 158 H 179 H (70-99) mg/dl Phosphorus (2.5-4.9) mg/dl TIBC 191 L (250-450) mcg/dl Unsaturated IBC 145 L (155-355) mcg/dl Ferritin (8-388) ng/ml 07/06/22 Range/Units 17:10 Hgb (14.0-18.0) g/dl Hct (40.1-51.0) % Sodium (136-145) mmol/L Chloride (98-107) mmol/L BUN (6-23) mg/dl Creatinine (0.6-1.4) mg/dl BUN/Creatinine Ratio (10-20) Glucose (70-99(Fasting)) mg/dl POC Glucose 175 H (70-99) mg/dl Phosphorus (2.5-4.9) mg/dl TIBC (250-450) mcg/dl Unsaturated IBC (155-355) mcg/dl Ferritin (8-388) ng/ml Medications Administered Reviewed PG Care Time/CCT Total # of Minutes Spent Total Time Spent with Patient: Total time spent is greater than 50% in coordination of care (as documented) at patient's floor/unit and/or counseling patient: Coding Level of Care Code 61700 Subseq Hosp Care Lvl 2 Diagnoses Closed trimalleolar fracture of right ankle S82.851A Atrial fibrillation I48.91 ESRD (end stage renal disease) on dialysis N18.6; Z99.2 Prostate cancer C61 Diabetes mellitus E11.9 GERD (gastroesophageal reflux disease) K21.9 HLD (hyperlipidemia) E78.5 Gout M10.9 HTN (hypertension) I10 Diabetic neuropathy E11.40 Depression F32.A
[2022-07-06] MEDS: allopurinoL 100 MG TAB PO SCH (21:05)
[2022-07-06] MEDS: MONTELUKAST SODIUM 10 MG TABLET PO SCH (21:06)
[2022-07-06] MEDS: IMIPRAMINE HCL 50 MG TAB PO SCH (21:06)
[2022-07-06] MEDS: MELATONIN 3 MG TAB PO SCH (21:06)
[2022-07-07] MEDS: VITAMIN B COMPLEX TAB PO SCH (08:18)
[2022-07-07] MEDS: FUROSEMIDE 40 MG TAB PO SCH (08:18)
[2022-07-07] MEDS: OMEGA-3 (PURIFIED FISH OIL) 1 GM CAP PO SCH ×2 (08:18→21:38)
[2022-07-07] MEDS: AMIODARONE 200 MG TAB PO SCH (08:18)
[2022-07-07] MEDS: VALSARTAN/SACUBITRIL 26/24MG TAB PO SCH ×2 (08:18→21:39)
[2022-07-07] MEDS: CHOLECALCIFEROL 1,000 UNITS 25 MCG TAB PO SCH (08:18)
[2022-07-07] MEDS: APIXABAN 5 MG TABLET PO SCH ×2 (08:18→21:38)
[2022-07-07] MEDS: FAMOTIDINE 20 MG TAB PO SCH (08:19)
[2022-07-07] MEDS: SERTRALINE HCL 50 MG TABLET PO SCH (08:19)
[2022-07-07] MEDS: ATORVASTATIN 40 MG TAB PO SCH (08:19)
[2022-07-07] MEDS: METOPROLOL SUCC 25MG EXT REL TAB PO SCH (08:19)
[2022-07-07] MEDS: CETIRIZINE HCL 10 MG TABLET PO SCH (08:19)
[2022-07-07] MEDS: NEPHROCAPS PO SCH (08:19)
[2022-07-07] MEDS: DOCUSATE SODIUM/SENNA 50/8.6MG TAB PO SCH (08:19)
[2022-07-07] MEDS: INSULIN ASPART PER UNIT SC SCH ×4 (09:04→21:43)
--- NOTE | 2022-07-07 09:42 | Nephrology Progress Note ---
Date of Service July 07, 2022 Assessment & Plan (1) ESRD (end stage renal disease) on dialysis: Plan: ESRD on HD MWF. Next anticipated treatment tomorrow. BP and volume status controlled. Adequate clearance with treatment yesterday. AVF with good thrill and bruit. Some arterial access pressure issues yesterday likely related to needle placement. Medications appropriately dosed for IHD. Renal diet with 1 L daily fluid restriction. (2) HTN (hypertension): Plan: BP acceptable. Remains on Entresto and metoprolol. (3) Closed trimalleolar fracture of right ankle: Plan: Ortho follow up regarding ORIF pending. (4) Anemia: Plan: Epogen 29247 units provided with HD 07/03. Hgb stable. Iron stores acceptable. (5) Atrial fibrillation: Plan: Anticoagulated. Remains on amiodarone. No symptoms. Admission and Anticipated Discharge Date Admission Date: July 01, 2022 Subjective No acute events overnight. HD stopped early yesterday due to difficulty with arterial access. I suspect this was related to needle placement. Adequate treatment and UF were achieved. Raisa feels reasonably well this AM. He denies shortness of breath. He denies pain. He expressed frustration regarding his injury and the anticipated healing process. Review of Systems Review of Systems: All systems reviewed & are unremarkable except as noted in HPI & below Physical Exam Constitutional: well developed; no acute distress Eyes: + anicteric sclerae; no corneal abnormality ENMT: Mouth: no oral mucosal abnormality and oral mucous membranes not dry Neck: normal visual inspection and trachea midline Respiratory: normal respiratory effort Auscultation: lungs clear to auscultation bilaterally and + rales Cardiovascular: Rate/Rhythm: regular rate and + irregularly irregular Heart Sounds: normal S1 and normal S2 Extremities: + edema and + AV fistula Musculoskeletal: Extremities: no cyanosis and no clubbing Skin: normal turgor; no lesions Neurologic: Motor/Sensory: no tremor and no asterixis Psychiatric: Orientation: alert and oriented x 3 Results & Data ([facility]) Vital Signs (Past 12 Hours) Vital Signs Temp Pulse Resp BP Pulse Ox O2 Del Method 07/07/22 07:26 36.7 C 79 18 144/70 H 94 Room Air 07/06/22 22:38 37.3 C 74 16 141/62 H 98 Room Air Laboratory Results Laboratory Results - last 24 hr 07/06/22 07/06/22 07/06/22 13:58 17:10 20:17 POC Glucose 179 H 175 H 136 H 07/07/22 07:55 POC Glucose 148 H PG Care Time/CCT Total # of Minutes Spent Total Time Spent with Patient: Total time spent is greater than 50% in coordination of care (as documented) at patient's floor/unit and/or counseling patient: Coding Level of Care Code 79885 Subseq Hosp Care Lvl 3 Diagnoses ESRD (end stage renal disease) on dialysis N18.6; Z99.2 HTN (hypertension) I10 Closed trimalleolar fracture of right ankle S82.851A Anemia D64.9 Atrial fibrillation I48.91
--- NOTE | 2022-07-07 19:51 | Hospitalist Progress Note ---
Date of Service July 07, 2022 Assessment & Plan (1) Closed trimalleolar fracture of right ankle: Plan: See below (2) Atrial fibrillation: Plan: Confirms A. fib. She he says incidentally discovered on EKG sometime back Taking Eliquis. -Continue amiodarone 200mg QD (3) ESRD (end stage renal disease) on dialysis: Plan: - Appreciate nephrology help with dialysis 3 times a week. (4) Prostate cancer: Plan: - In remission s/p prostatectomy (5) Diabetes mellitus: Plan: -Not on any home medications, no hemoglobin A1c visible in the chartcheck in the morning-Continue BSG checks, sliding-scale insulin, hypoglycemic protocol 136, 223, 145- (6) GERD (gastroesophageal reflux disease): Plan: -Continue famotidine 20mg BID (7) HLD (hyperlipidemia): Plan: -Continue atorvastatin 40mg QD. (8) Gout: Plan: -continue allopurinol 100mg BID (9) HTN (hypertension): Plan: -Continue metoprolol 12.5 mg QD, midodrine 5mg 3xwk -Patient is on Entresto BID, Lasix 40mg QD and has had an ECHO recently. Patient does not think he has HF. (10) Diabetic neuropathy: Plan: -Continue at home meds. (11) Depression: Plan: Raise sertraline to 50 mg as mood suboptimally controlled Plan Orthopedic surgeon who saw patient last week does not want to do surgery as an inpatient. The patient cannot go to rehab without getting his ankle fixed. Have consulted [facility] orthopedics and they have [place] schedule full today and next two days. Case m/t working on podiatry intervention plan in [place] SNF at [place]. Admission and Anticipated Discharge Date Admission Date: July 01, 2022 Subjective No complaints, sat on side of bed with physical therapy today. She denies any baseline dyspnea on exertion at home. Physical Exam Physical Exam: Alert and pleasant when seen 1540 hrs., very talkative,oriented to place and month unable to recall history in detail, lying in bed. Scotty face,moderate obesity Oral mucosa moist No thyromegaly Chest clear to auscultation CVS S1-S2 Extremities trace edema Right ankle in a cast, able to wiggle right toe, 5 or 5 dorsiflexion and plantar flexion left toes Results & Data Results & Data ([facility]) Vital Signs (Past 12 Hours) Vital Signs Temp Pulse Resp BP Pulse Ox 07/07/22 15:44 36.8 C 63 18 145/70 H 95 PG Care Time/CCT Total # of Minutes Spent Total Time Spent with Patient: Total time spent is greater than 50% in coordination of care (as documented) at patient's floor/unit and/or counseling patient: Coding Level of Care Code 16003 Subseq Hosp Care Lvl 2 Diagnoses Closed trimalleolar fracture of right ankle S82.851A Atrial fibrillation I48.91 ESRD (end stage renal disease) on dialysis N18.6; Z99.2 Prostate cancer C61 Diabetes mellitus E11.9 GERD (gastroesophageal reflux disease) K21.9 HLD (hyperlipidemia) E78.5 Gout M10.9 HTN (hypertension) I10 Diabetic neuropathy E11.40 Depression F32.A
[2022-07-07] MEDS: IMIPRAMINE HCL 50 MG TAB PO SCH (21:38)
[2022-07-07] MEDS: MELATONIN 3 MG TAB PO SCH (21:39)
[2022-07-07] MEDS: MONTELUKAST SODIUM 10 MG TABLET PO SCH (21:39)
[2022-07-07] MEDS: ACETAMINOPHEN 500 MG TAB PO PRN (21:43)
[2022-07-08 06:43] LABS: Albumin Level 3.5 gm/dl (3.4-5.0); BUN Creatinine Ratio 7.7 (10-20); Calcium 8.9 mg/dl (8.5-10.1); Creatinine Clr Calc Pharmacy 11.6 ml/min; Est GFR (African American) 7.9 ml/min; Est GFR (Non-African American) 6.8 ml/min; Phosphorus 4.8 mg/dl (2.5-4.9); Potassium 4.3 mmol/L (3.5-5.1)
[2022-07-08 07:05] LABS: Estimated Average Glucose 131 mg/dl; Hemoglobin A1C 6.2 % (4.5-5.6)
[2022-07-08] MEDS: VALSARTAN/SACUBITRIL 26/24MG TAB PO SCH ×2 (08:36→21:29)
[2022-07-08] MEDS: CETIRIZINE HCL 10 MG TABLET PO SCH (08:36)
[2022-07-08] MEDS: METOPROLOL SUCC 25MG EXT REL TAB PO SCH (08:36)
[2022-07-08] MEDS: DOCUSATE SODIUM/SENNA 50/8.6MG TAB PO SCH (08:37)
[2022-07-08] MEDS: MIDODRINE HCL 2.5 MG TAB PO SCH (08:37)
[2022-07-08] MEDS: NEPHROCAPS PO SCH (08:37)
[2022-07-08] MEDS: CHOLECALCIFEROL 1,000 UNITS 25 MCG TAB PO SCH (08:37)
[2022-07-08] MEDS: SERTRALINE HCL 50 MG TABLET PO SCH (08:37)
[2022-07-08] MEDS: ATORVASTATIN 40 MG TAB PO SCH (08:37)
[2022-07-08] MEDS: FUROSEMIDE 40 MG TAB PO SCH (08:37)
[2022-07-08] MEDS: APIXABAN 5 MG TABLET PO SCH ×2 (08:38→21:26)
[2022-07-08] MEDS: AMIODARONE 200 MG TAB PO SCH (08:38)
[2022-07-08] MEDS: OMEGA-3 (PURIFIED FISH OIL) 1 GM CAP PO SCH ×2 (08:38→21:26)
[2022-07-08] MEDS: INSULIN ASPART PER UNIT SC SCH ×4 (09:07→21:28)
[2022-07-08] MEDS: VITAMIN B COMPLEX TAB PO SCH (10:03)
[2022-07-08] MEDS: FAMOTIDINE 20 MG TAB PO SCH (10:03)
--- NOTE | 2022-07-08 10:42 | Nephrology Progress Note ---
Date of Service July 08, 2022 Assessment & Plan (1) ESRD (end stage renal disease) on dialysis: Plan: ESRD on HD MWF. Orders for HD today entered into the EHR and reviewed with technologies division chair. Patient seen and evaluated during treatment. AVF functioning well. Access pressures acceptable. Medications appropriately dosed for IHD. Renal diet with 1 L daily fluid restriction. (2) HTN (hypertension): Plan: BP acceptable. Remains on Entresto and metoprolol. (3) Closed trimalleolar fracture of right ankle: Plan: Ortho follow up regarding ORIF pending. (4) Anemia: Plan: Epogen 49929 units provided with HD 07/03. Hgb stable. Iron stores acceptable. (5) Atrial fibrillation: Plan: Anticoagulated. Remains on amiodarone. No symptoms. Admission and Anticipated Discharge Date Admission Date: July 01, 2022 Subjective No acute events overnight. No complaints this AM. Raisa was seen and evaluated during hemodialysis. Review of Systems Review of Systems: All systems reviewed & are unremarkable except as noted in HPI & below Physical Exam Constitutional: well developed; no acute distress Eyes: + anicteric sclerae; no corneal abnormality ENMT: Mouth: no oral mucosal abnormality and oral mucous membranes not dry Neck: normal visual inspection and trachea midline Respiratory: normal respiratory effort Auscultation: lungs clear to auscultation bilaterally and + rales Cardiovascular: Rate/Rhythm: regular rate and + irregularly irregular Heart Sounds: normal S1, normal S2 and + murmur Extremities: + edema and + AV fistula Musculoskeletal: Extremities: no cyanosis and no clubbing Skin: normal turgor; no lesions Neurologic: Motor/Sensory: no tremor and no asterixis Psychiatric: Orientation: alert and oriented x 3 Results & Data ([facility]) Vital Signs (Past 12 Hours) Vital Signs Temp Pulse Resp BP Pulse Ox O2 Del Method 07/08/22 08:16 36.6 C 76 18 147/73 H 95 Room Air Laboratory Results Laboratory Results - last 24 hr 07/07/22 07/07/22 07/07/22 11:47 16:40 20:24 Hgb Hct Sodium Potassium Chloride Carbon Dioxide Anion Gap BUN Creatinine Est Cr Clr Drug Dosing Est GFR ( Amer) Est GFR (Non-Af Amer) BUN/Creatinine Ratio Glucose POC Glucose 223 H 145 H 169 H Estimat Average Glucose Hemoglobin A1c Calcium Phosphorus Albumin 07/08/22 07/08/22 07/08/22 06:05 06:05 06:05 Hgb 9.0 L Hct 28.0 L Sodium 135 L Potassium 4.3 Chloride 98 Carbon Dioxide 27 Anion Gap 10 BUN 56 H Creatinine 7.24 H* Est Cr Clr Drug Dosing 11.6 Est GFR ( Amer) 7.9 Est GFR (Non-Af Amer) 6.8 BUN/Creatinine Ratio 7.7 L Glucose 142 H POC Glucose Estimat Average Glucose 131 Hemoglobin A1c 6.2 H Calcium 8.9 Phosphorus 4.8 Albumin 3.5 07/08/22 08:20 Hgb Hct Sodium Potassium Chloride Carbon Dioxide Anion Gap BUN Creatinine Est Cr Clr Drug Dosing Est GFR ( Amer) Est GFR (Non-Af Amer) BUN/Creatinine Ratio Glucose POC Glucose 151 H Estimat Average Glucose Hemoglobin A1c Calcium Phosphorus Albumin PG Care Time/CCT Total # of Minutes Spent Total Time Spent with Patient: Total time spent is greater than 50% in coordination of care (as documented) at patient's floor/unit and/or counseling patient: Coding Level of Care Code 50050 Subseq Hosp Care Lvl 3 Diagnoses ESRD (end stage renal disease) on dialysis N18.6; Z99.2 HTN (hypertension) I10 Closed trimalleolar fracture of right ankle S82.851A Anemia D64.9 Atrial fibrillation I48.91
--- NOTE | 2022-07-08 15:31 | Hospitalist Progress Note ---
Date of Service July 08, 2022 Assessment & Plan (1) Fracture of right patella: Plan: -xray in the ED showed displaced trimalleolar right ankle fracture with widening of the ankle mortise and posterior subluxation of the talus in relation to the distal tibia. -Patient seen on admission is S/P reduction and casting. Orthi disposition -outpatient repair. Trying to get a rehab facility closer to [place] where the help desk intern who will do the ORIF is located.i have been discussing with case management daily including this morning (2) Atrial fibrillation: Plan: Paroxysmal atrial fibrillation on warfarin in the past now on Eliquis (3) ESRD (end stage renal disease) on dialysis: Plan: On hemodialysis which was todayWednesday Macrocytic anemia: No iron deficiency on iron studies. Check B12 level and folate (4) Prostate cancer: Plan: - In remission s/p prostatectomy (5) Diabetes mellitus: Plan: Home glipizide dose 5 mg twice , 151, 169, 223 Hemoglobin A1c 6.2% here. (6) GERD (gastroesophageal reflux disease): Plan: -Continue famotidine 20mg BID (7) HLD (hyperlipidemia): Plan: -Continue atorvastatin 40mg QD. (8) Gout: Plan: -continue allopurinol 100mg BID (9) HTN (hypertension): Plan: -Continue metoprolol 12.5 mg QD, midodrine 5mg 3xwk -Patient is on Entresto BID, Lasix 40mg QD and has had an ECHO recently. 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 (11) Depression: Plan: -Continue sertraline 25mg QD Euthymic and cheerful (12) Closed trimalleolar fracture of right ankle: Plan Disposition per Ortho plan. I have messaged Dr Martinez . Also case mgt trying to reach ortho Admission and Anticipated Discharge Date Admission Date: July 01, 2022 Subjective No complaints. Says he [facility] [place] today where he will will likely be transferred after definite Ortho disposition obtained. Had just returned from dialysis when he was seen around 1330 hrs. today Physical Exam Physical Exam: Alert and pleasant, conversant as usual Scotty face,moderate obesity Oral mucosa moist No thyromegaly Extremities trace edema Right ankle in a cast, able to wiggle right toe, 5 or 5 dorsiflexion and plantar flexion left toes Results & Data Results & Data ([facility]) Vital Signs (Past 12 Hours) Vital Signs Temp Pulse Resp BP Pulse Ox O2 Del Method 07/08/22 08:16 36.6 C 76 18 147/73 H 95 Room Air Laboratory Results Abnormal lab results 07/07/22 07/07/22 07/08/22 Range/Units 16:40 20:24 06:05 Hgb 9.0 L (14.0-18.0) g/dl Hct 28.0 L (40.1-51.0) % Sodium (136-145) mmol/L BUN (6-23) mg/dl Creatinine (0.6-1.4) mg/dl BUN/Creatinine Ratio (10-20) Glucose (70-99(Fasting)) mg/dl POC Glucose 145 H 169 H (70-99) mg/dl Hemoglobin A1c (4.5-5.6) % 07/08/22 07/08/22 07/08/22 Range/Units 06:05 06:05 08:20 Hgb (14.0-18.0) g/dl Hct (40.1-51.0) % Sodium 135 L (136-145) mmol/L BUN 56 H (6-23) mg/dl Creatinine 7.24 H* (0.6-1.4) mg/dl BUN/Creatinine Ratio 7.7 L (10-20) Glucose 142 H (70-99(Fasting)) mg/dl POC Glucose 151 H (70-99) mg/dl Hemoglobin A1c 6.2 H (4.5-5.6) % 07/08/22 Range/Units 13:30 Hgb (14.0-18.0) g/dl Hct (40.1-51.0) % Sodium (136-145) mmol/L BUN (6-23) mg/dl Creatinine (0.6-1.4) mg/dl BUN/Creatinine Ratio (10-20) Glucose (70-99(Fasting)) mg/dl POC Glucose 170 H (70-99) mg/dl Hemoglobin A1c (4.5-5.6) % PG Care Time/CCT Total # of Minutes Spent Total Time Spent with Patient: Total time spent is greater than 50% in coordination of care (as documented) at patient's floor/unit and/or counseling patient: Coding Level of Care Code 23615 Subseq Hosp Care Lvl 2 Diagnoses Fracture of right patella S82.001A Atrial fibrillation I48.91 ESRD (end stage renal disease) on dialysis N18.6; Z99.2 Prostate cancer C61 Diabetes mellitus E11.9 GERD (gastroesophageal reflux disease) K21.9 HLD (hyperlipidemia) E78.5 Gout M10.9 HTN (hypertension) I10 Diabetic neuropathy E11.40 Depression F32.A Closed trimalleolar fracture of right ankle S82.851A
[2022-07-08] MEDS: ACETAMINOPHEN 500 MG TAB PO PRN (21:25)
[2022-07-08] MEDS: allopurinoL 100 MG TAB PO SCH (21:27)
[2022-07-08] MEDS: IMIPRAMINE HCL 50 MG TAB PO SCH (21:27)
[2022-07-08] MEDS: MELATONIN 3 MG TAB PO SCH (21:28)
[2022-07-08] MEDS: MONTELUKAST SODIUM 10 MG TABLET PO SCH (21:29)
--- NOTE | 2022-07-08 21:48 | Billing Data ---
Date of Service July 01, 2022 Coding Level of Care Code 59094 Initial Inpt Care Lvl 2
[2022-07-09] MEDS: OMEGA-3 (PURIFIED FISH OIL) 1 GM CAP PO SCH ×2 (07:37→21:16)
[2022-07-09] MEDS: CHOLECALCIFEROL 1,000 UNITS 25 MCG TAB PO SCH (07:37)
[2022-07-09] MEDS: DOCUSATE SODIUM/SENNA 50/8.6MG TAB PO SCH (07:37)
[2022-07-09] MEDS: VITAMIN B COMPLEX TAB PO SCH (07:37)
[2022-07-09] MEDS: VALSARTAN/SACUBITRIL 26/24MG TAB PO SCH ×2 (07:37→21:17)
[2022-07-09] MEDS: NEPHROCAPS PO SCH (07:38)
[2022-07-09] MEDS: METOPROLOL SUCC 25MG EXT REL TAB PO SCH (07:38)
[2022-07-09] MEDS: AMIODARONE 200 MG TAB PO SCH (07:38)
[2022-07-09] MEDS: APIXABAN 5 MG TABLET PO SCH (07:38)
[2022-07-09] MEDS: ATORVASTATIN 40 MG TAB PO SCH (07:38)
[2022-07-09] MEDS: FUROSEMIDE 40 MG TAB PO SCH (07:38)
[2022-07-09] MEDS: SERTRALINE HCL 50 MG TABLET PO SCH (07:39)
[2022-07-09] MEDS: FAMOTIDINE 20 MG TAB PO SCH (07:39)
[2022-07-09] MEDS: CETIRIZINE HCL 10 MG TABLET PO SCH (07:39)
--- NOTE | 2022-07-09 09:43 | Nephrology Progress Note ---
Date of Service July 09, 2022 Assessment & Plan (1) ESRD (end stage renal disease) on dialysis: Plan: ESRD on HD MWF. Completed treatment yesterday without complications. Adequate clearance. Volume status acceptable. AVF functioning well. Medications appropriately dosed for IHD. Renal diet with 1 L daily fluid restriction. (2) HTN (hypertension): Plan: BP acceptable. Remains on Entresto and metoprolol. (3) Closed trimalleolar fracture of right ankle: Plan: Ortho follow up regarding ORIF pending. Dispo unclear at this time. (4) Anemia: Plan: Epogen 35548 units provided with HD 07/03. Hgb stable. Iron stores acceptable. (5) Atrial fibrillation: Plan: Anticoagulated. Remains on amiodarone. No symptoms. Admission and Anticipated Discharge Date Admission Date: July 01, 2022 Subjective No acute events overnight. Completed HD yesterday without complications. Net UF 2.5 L. Denies pain. Overall, Raisa feels well. Review of Systems Review of Systems: All systems reviewed & are unremarkable except as noted in HPI & below Physical Exam Constitutional: well developed; no acute distress Eyes: + anicteric sclerae; no corneal abnormality ENMT: Mouth: no oral mucosal abnormality and oral mucous membranes not dry Neck: normal visual inspection and trachea midline Respiratory: normal respiratory effort Auscultation: lungs clear to auscultation bilaterally Cardiovascular: Rate/Rhythm: regular rate and + irregularly irregular Heart Sounds: normal S1, normal S2 and + murmur Extremities: + edema and + AV fistula Musculoskeletal: Extremities: no cyanosis and no clubbing Skin: normal turgor; no lesions Neurologic: Motor/Sensory: no tremor and no asterixis Psychiatric: Orientation: alert and oriented x 3 Results & Data ([facility]) Vital Signs (Past 12 Hours) Vital Signs Temp Pulse Resp BP Pulse Ox O2 Del Method 07/09/22 07:59 36.7 C 71 17 151/65 H 94 Room Air 07/08/22 21:50 37.2 C 67 16 125/62 93 Laboratory Results Laboratory Results - last 24 hr 07/08/22 07/08/22 07/08/22 13:30 16:52 20:35 POC Glucose 170 H 166 H 213 H 07/09/22 08:11 POC Glucose 132 H PG Care Time/CCT Total # of Minutes Spent Total Time Spent with Patient: Total time spent is greater than 50% in coordination of care (as documented) at patient's floor/unit and/or counseling patient: Coding Level of Care Code 34371 Subseq Hosp Care Lvl 3 Diagnoses ESRD (end stage renal disease) on dialysis N18.6; Z99.2 HTN (hypertension) I10 Closed trimalleolar fracture of right ankle S82.851A Anemia D64.9 Atrial fibrillation I48.91
[2022-07-09] MEDS: INSULIN ASPART PER UNIT SC SCH ×4 (09:58→20:55)
--- NOTE | 2022-07-09 19:45 | Hospitalist Progress Note ---
Date of Service July 09, 2022 Assessment & Plan (1) Closed trimalleolar fracture of right ankle: Plan: Sent a message to [facility] orthopedics to reevaluate patient since it has been a week. And plan was to follow-up in a week. Dr. Martinez will reach out to his colleagues to evaluate patient for surgery again Plan to hold Eliquis pending orthopedic re-evaluation (2) Atrial fibrillation: Plan: -Will hold Eliquis overnight in case patient goes to surgery. Last had Eliquis 07/09 in the AM. -Continue amiodarone 200mg QD (3) ESRD (end stage renal disease) on dialysis: Plan: -On dialysis 3 x a week. On hemodialysis Wednesday Macrocytic anemia: No iron deficiency on iron studies. (4) Prostate cancer: Plan: - In remission s/p prostatectomy (5) Diabetes mellitus: Plan: Home glipizide dose 5 mg twice daily (6) GERD (gastroesophageal reflux disease): Plan: -Continue famotidine 20mg BID (7) HLD (hyperlipidemia): Plan: -Continue atorvastatin 40mg QD. (8) Gout: Plan: -continue allopurinol 100mg BID (9) HTN (hypertension): Plan: -Continue metoprolol 12.5 mg QD, midodrine 5mg 3xwk -Patient is on Entresto BID, Lasix 40mg QD and has had an ECHO recently. Sees an outside die press operator :we do not have access to these records and these medications were continued (10) Diabetic neuropathy: Plan: -Continue at home meds (11) Depression: Plan: Sertraline increased to 50 mg p.o. daily per prior provider. We will recheck QTC in a.m. Admission and Anticipated Discharge Date Admission Date: July 01, 2022 Subjective No acute change in symptoms. Awaiting possible placement this time. Review of Systems Review of Systems: All systems reviewed & are unremarkable except as noted in Subjective Physical Exam 2 Constitutional: WD/WN, vitals as above Respiratory: normal respiratory effort, lungs clear to auscultation Cardiovascular: RRR, no murmur, no edema Musculoskeletal: right ankle in cast, not examined Psychiatric: A+Ox3, euthymic affect Results & Data Results & Data ([facility]) Vital Signs (Past 12 Hours) Vital Signs Temp Pulse Resp BP Pulse Ox O2 Del Method 07/09/22 15:13 36.8 C 62 17 120/50 L 94 Room Air 07/09/22 07:59 36.7 C 71 17 151/65 H 94 Room Air PG Care Time/CCT Total # of Minutes Spent Total Time Spent with Patient: Total time spent is greater than 50% in coordination of care (as documented) at patient's floor/unit and/or counseling patient: Coding Level of Care Code 73135 Subseq Hosp Care Lvl 1 Diagnoses Closed trimalleolar fracture of right ankle S82.851A Atrial fibrillation I48.91 ESRD (end stage renal disease) on dialysis N18.6; Z99.2 Prostate cancer C61 Diabetes mellitus E11.9 GERD (gastroesophageal reflux disease) K21.9 HLD (hyperlipidemia) E78.5 Gout M10.9 HTN (hypertension) I10 Diabetic neuropathy E11.40 Depression F32.A
[2022-07-09] MEDS: IMIPRAMINE HCL 50 MG TAB PO SCH (21:16)
[2022-07-09] MEDS: MONTELUKAST SODIUM 10 MG TABLET PO SCH (21:17)
[2022-07-09] MEDS: MELATONIN 3 MG TAB PO SCH (21:17)
[2022-07-10 06:35] LABS: Hematocrit (blood only) 27.5 % (40.1-51.0); Hemoglobin 8.8 g/dl (14.0-18.0)
[2022-07-10 07:09] LABS: Albumin Level 3.4 gm/dl (3.4-5.0); BUN Creatinine Ratio 8.1 (10-20); Calcium 8.8 mg/dl (8.5-10.1); Creatinine Clr Calc Pharmacy 12.9 ml/min; Est GFR (African American) 9.1 ml/min; Est GFR (Non-African American) 7.9 ml/min; Phosphorus 5.2 mg/dl (2.5-4.9); Potassium 4.6 mmol/L (3.5-5.1)
--- NOTE | 2022-07-10 07:50 | Communication Note ---
Date of Service: July 10, [address] Gregg. He is unavailable to perform surgery in a timely manner. He discussed with Dr. Garcia with [facility] who is willing to accept patient in transfer to [facility] for definitive management.
[2022-07-10] MEDS ORDERED: IRON SUCROSE 100 MG in SYRINGE 0 ML IV ONE (08:37)
[2022-07-10] MEDS ORDERED: EPOETIN ALFA 10,000 UNITS/ML VIAL IV ONE (08:39)
[2022-07-10] MEDS: CHOLECALCIFEROL 1,000 UNITS 25 MCG TAB PO SCH (09:05)
[2022-07-10] MEDS: MIDODRINE HCL 2.5 MG TAB PO SCH (09:05)
[2022-07-10] MEDS: CETIRIZINE HCL 10 MG TABLET PO SCH (09:05)
[2022-07-10] MEDS: ATORVASTATIN 40 MG TAB PO SCH (09:05)
[2022-07-10] MEDS: SERTRALINE HCL 50 MG TABLET PO SCH (09:05)
[2022-07-10] MEDS: AMIODARONE 200 MG TAB PO SCH (09:06)
[2022-07-10] MEDS: VITAMIN B COMPLEX TAB PO SCH (09:06)
[2022-07-10] MEDS: NEPHROCAPS PO SCH (09:06)
[2022-07-10] MEDS: FAMOTIDINE 20 MG TAB PO SCH (09:06)
[2022-07-10] MEDS: DOCUSATE SODIUM/SENNA 50/8.6MG TAB PO SCH (09:06)
[2022-07-10] MEDS: INSULIN ASPART PER UNIT SC SCH ×4 (09:34→21:48)
--- NOTE | 2022-07-10 10:00 | Nephrology Progress Note ---
Date of Service July 10, 2022 Assessment & Plan (1) ESRD (end stage renal disease) on dialysis: Plan: ESRD on HD MWF. Orders for HD today entered into the EHR and reviewed with the salesforce business analyst. 4 hours 2K bath 140 Na and 32 HCO3. Qb 400. UF goal 2-3 L, as tolerated. AVF functioning well. Medications appropriately dosed for IHD. Renal diet with 1 L daily fluid restriction. (2) HTN (hypertension): Plan: BP acceptable. Remains on Entresto and metoprolol. (3) Closed trimalleolar fracture of right ankle: Plan: Ortho follow up regarding ORIF pending. Dispo unclear at this time. (4) Anemia: Plan: Epogen 80637 units provided with HD 07/03. Additional 03121 units + Venofer 100 mg with HD today. Hgb stable. Iron stores overall acceptable. (5) Atrial fibrillation: Plan: Anticoagulated. Remains on amiodarone. No symptoms. Admission and Anticipated Discharge Date Admission Date: July 01, 2022 Subjective No acute events overnight. No complaints this AM. Raisa denies pain. He expressed frustration regarding continued hospitalization and the lack of surgical options currently available at [facility]. Review of Systems Review of Systems: All systems reviewed & are unremarkable except as noted in HPI & below Physical Exam Constitutional: well developed; no acute distress Eyes: + anicteric sclerae; no corneal abnormality ENMT: Mouth: no oral mucosal abnormality and oral mucous membranes not dry Neck: normal visual inspection and trachea midline Respiratory: normal respiratory effort Auscultation: lungs clear to auscul tation bilaterally and + rales Cardiovascular: Rate/Rhythm: regular rate and + irregularly irregular Heart Sounds: normal S1, normal S2 and + murmur Extremities: + edema and + AV fistula Musculoskeletal: Extremities: no cyanosis and no clubbing Skin: normal turgor; no lesions Neurologic: Motor/Sensory: no tremor and no asterixis Psychiatric: Orientation: alert and oriented x 3 Results & Data ([facility]) Vital Signs (Past 12 Hours) Vital Signs Temp Pulse Resp BP Pulse Ox O2 Del Method 07/10/22 07:36 37.0 C 89 16 133/66 95 Room Air 07/09/22 22:22 37.0 C 66 16 144/71 H 93 Laboratory Results Laboratory Results - last 24 hr 07/09/22 07/09/22 07/09/22 12:02 17:05 20:44 Hgb Hct Sodium Potassium Chloride Carbon Dioxide Anion Gap BUN Creatinine Est Cr Clr Drug Dosing Est GFR ( Amer) Est GFR (Non-Af Amer) BUN/Creatinine Ratio Glucose POC Glucose 211 H 173 H 157 H Calcium Phosphorus Albumin 07/10/22 07/10/22 07/10/22 05:55 05:55 07:46 Hgb 8.8 L Hct 27.5 L Sodium 136 Potassium 4.6 Chloride 100 Carbon Dioxide 26 Anion Gap 10 BUN 52 H Creatinine 6.44 H* D Est Cr Clr Drug Dosing 12.9 Est GFR ( Amer) 9.1 Est GFR (Non-Af Amer) 7.9 BUN/Creatinine Ratio 8.1 L Glucose 166 H POC Glucose 177 H Calcium 8.8 Phosphorus 5.2 H Albumin 3.4 PG Care Time/CCT Total # of Minutes Spent Total Time Spent with Patient: Total time spent is greater than 50% in coordination of care (as documented) at patient's floor/unit and/or counseling patient: Coding Level of Care Code 09110 Subseq Hosp Care Lvl 3 Diagnoses ESRD (end stage renal disease) on dialysis N18.6; Z99.2 HTN (hypertension) I10 Closed trimalleolar fracture of right ankle S82.851A Anemia D64.9 Atrial fibrillation I48.91
[2022-07-10] MEDS: FUROSEMIDE 40 MG TAB PO SCH (14:59)
[2022-07-10] MEDS: OMEGA-3 (PURIFIED FISH OIL) 1 GM CAP PO SCH ×2 (14:59→20:31)
[2022-07-10] MEDS: METOPROLOL SUCC 25MG EXT REL TAB PO SCH (14:59)
[2022-07-10] MEDS: VALSARTAN/SACUBITRIL 26/24MG TAB PO SCH ×2 (14:59→20:32)
--- NOTE | 2022-07-10 15:28 | Electrocardiogram Report ---
Test Reason : Blood Pressure : / mmHG Vent. Rate : 080 BPM Atrial Rate : 080 BPM P-R Int : 226 ms QRS Dur : 116 ms QT Int : 448 ms P-R-T Axes : 056 -35 087 degrees QTc Int : 516 ms Sinus rhythm with 1st degree A-V block Left axis deviation Poor R wave progression, consider anterior MD vs. lead placement vs. LVH Nonspecific ST and T wave abnormality Prolonged QT Abnormal ECG When compared with ECG of 01-JUL-2022 19:05, Premature ventricular complexes are no longer Present TN interval has increased Confirmed by Tariq Gavin ([id number]) on 07/10/2022 3:27:37 PM Referred By: REFERRED SELF Confirmed By:Tariq Gavin
--- NOTE | 2022-07-10 19:55 | Hospitalist Progress Note ---
Date of Service July 10, 2022 Assessment & Plan (1) Closed trimalleolar fracture of right ankle: Plan: Eliquis on hold since morning of 07/09 Planning for transfer to [facility] - accepted transfer under medicine under Dr Taya Rabago with Dr Loredo to consult for definitive surgical management. (2) Atrial fibrillation: Plan: -Last had Eliquis 07/09 in the AM -Continue amiodarone 200mg QD (3) ESRD (end stage renal disease) on dialysis: Plan: -On dialysis 3 x a week. On hemodialysis Wednesday Macrocytic anemia: No iron deficiency on iron studies. (4) Prostate cancer: Plan: - In remission s/p prostatectomy (5) Diabetes mellitus: Plan: Home glipizide dose 5 mg twice daily (6) GERD (gastroesophageal reflux disease): Plan: -Continue famotidine 20mg BID (7) HLD (hyperlipidemia): Plan: -Continue atorvastatin 40mg QD. (8) Gout: Plan: -continue allopurinol 100mg BID (9) HTN (hypertension): Plan: -Continue metoprolol 12.5 mg QD, midodrine 5mg 3xwk -Patient is on Entresto BID, Lasix 40mg QD and has had an ECHO recently. Sees an outside stage electrician helper :we do not have access to these records and these medications were continued (10) Diabetic neuropathy: Plan: -Continue at home meds (11) Depression: Plan: Sertraline increased to 50 mg p.o. daily per prior provider. Plan VTE Prophylaxis - Eliquis on hold pending surgical decision Diet - dialysis renal, T2DM Disposition - continued admission on med/surg pending transfer Admission and Anticipated Discharge Date Admission Date: July 01, 2022 Subjective No acute events overnight. No concerns or questions for me today. Note left on chart by orthopedics per Dr. Gregg had discussed with Dr. Garcia who is willing to accept patient in transfer to [facility] for definitive management. On calling [facility] he was not excepted for transfer. Transfer center discussed with Dr. Garcia who did not know about the patient. They therefore discussed with Dr. Loredo who is security operations analyst in [place] today for [facility] and accepted patient to perform the surgery but request patient was transferred under medicine due to him needing dialysis. Review of Systems Review of Systems: All systems reviewed & are unremarkable except as noted in Subjective Physical Exam Constitutional: well developed; no acute distress Eyes: + anicteric sclerae; normal pupil size ENMT: Mouth: no oral mucosal abnormality and oral mucous membranes not dry Respiratory: normal respiratory effort, lungs clear to auscultation Cardiovascular: Rate/Rhythm: regular rate and + irregularly irregular Heart Sounds: normal S1, normal S2 and + murmur Extremities: + pedal edema Musculoskeletal: Extremities: no cyanosis and no clubbing Psychiatric: Orientation: alert and oriented x 3 Results & Data Results & Data ([facility]) Vital Signs (Past 12 Hours) Vital Signs Temp Pulse Pulse Resp BP BP Pulse Ox 07/10/22 14:10 37.1 C 74 111/60 07/10/22 13:30 75 111/64 07/10/22 14:50 37 C 73 16 120/55 L 92 07/10/22 13:00 74 113/61 07/10/22 12:30 75 119/56 L 07/10/22 12:00 74 106/58 L 07/10/22 11:30 77 105/58 L 07/10/22 11:00 76 118/64 07/10/22 10:30 76 115/61 07/10/22 10:00 75 119/69 07/10/22 09:41 37.1 C 76 07/10/22 09:49 76 115/63 O2 Del Method 07/10/22 14:10 07/10/22 13:30 07/10/22 14:50 Room Air 07/10/22 13:00 07/10/22 12:30 07/10/22 12:00 07/10/22 11:30 07/10/22 11:00 07/10/22 10:30 07/10/22 10:00 07/10/22 09:41 07/10/22 09:49 PG Care Time/CCT Total # of Minutes Spent Total Time Spent with Patient: Total time spent is greater than 50% in coordination of care (as documented) at patient's floor/unit and/or counseling patient: Coding Level of Care Code 10503 Subseq Hosp Care Lvl 2 Diagnoses Closed trimalleolar fracture of right ankle S82.851A Atrial fibrillation I48.91 ESRD (end stage renal disease) on dialysis N18.6; Z99.2 Prostate cancer C61 Diabetes mellitus E11.9 GERD (gastroesophageal reflux disease) K21.9 HLD (hyperlipidemia) E78.5 Gout M10.9 HTN (hypertension) I10 Diabetic neuropathy E11.40 Depression F32.A
[2022-07-10] MEDS: IMIPRAMINE HCL 50 MG TAB PO SCH (20:31)
[2022-07-10] MEDS: allopurinoL 100 MG TAB PO SCH (20:31)
[2022-07-10] MEDS: MELATONIN 3 MG TAB PO SCH (20:31)
[2022-07-10] MEDS: MONTELUKAST SODIUM 10 MG TABLET PO SCH (20:32)
[2022-07-11 07:58] LABS: Vitamin B12 > 1500 pg/ml (180-914)
[2022-07-11] MEDS: AMIODARONE 200 MG TAB PO SCH (08:17)
[2022-07-11] MEDS: VITAMIN B COMPLEX TAB PO SCH (08:17)
[2022-07-11] MEDS: NEPHROCAPS PO SCH (08:18)
[2022-07-11] MEDS: VALSARTAN/SACUBITRIL 26/24MG TAB PO SCH ×2 (08:18→20:34)
[2022-07-11] MEDS: DOCUSATE SODIUM/SENNA 50/8.6MG TAB PO SCH (08:18)
[2022-07-11] MEDS: CETIRIZINE HCL 10 MG TABLET PO SCH (08:18)
[2022-07-11] MEDS: OMEGA-3 (PURIFIED FISH OIL) 1 GM CAP PO SCH ×2 (08:18→20:34)
[2022-07-11] MEDS: CHOLECALCIFEROL 1,000 UNITS 25 MCG TAB PO SCH (08:18)
[2022-07-11] MEDS: FAMOTIDINE 20 MG TAB PO SCH (08:18)
[2022-07-11] MEDS: METOPROLOL SUCC 25MG EXT REL TAB PO SCH (08:18)
[2022-07-11] MEDS: FUROSEMIDE 40 MG TAB PO SCH (08:18)
[2022-07-11] MEDS: SERTRALINE HCL 50 MG TABLET PO SCH (08:18)
[2022-07-11] MEDS: ATORVASTATIN 40 MG TAB PO SCH (08:18)
--- NOTE | 2022-07-11 08:56 | Nephrology Progress Note ---
Date of Service July 11, 2022 Assessment & Plan (1) ESRD (end stage renal disease) on dialysis: Plan: * ESKD on HD MWF at [facility] (Dr. Breaux). Outpatient orders: 4 hours 2K bath 140 Na and 32 HCO3. Qb 400. UF goal 2-3 L, as tolerated. * AVF functioning well * Renal diet with 1 L daily fluid restriction * No acute indication for HD today. Will check PRP, CBC in am and plan for next HD on Wednesday (2) HTN (hypertension): Plan: * BP acceptable. Remains on entresto and metoprolol (3) Closed trimalleolar fracture of right ankle: Plan: * Management as per Orthopedics (4) Anemia: Plan: * Hgb stable. Iron stores overall acceptable (5) Atrial fibrillation: Plan: * Apixaban currently on hold. Remains on amiodarone. No symptoms Admission and Anticipated Discharge Date Admission Date: July 01, 2022 Subjective Mr. Philip was evaluated in his hospital room this morning. He was last dialyzed yesterday for 2.5 L UF without complication. Mr. Philip voiced no new medical concerns this am Review of Systems Constitutional: no fever Eyes: no problem reported Ear, Nose, Mouth, Throat: no problem reported Respiratory: no cough and no dyspnea Cardiovascular: no chest pain and no edema Gastrointestinal: no abdominal pain Neurologic: no confusion Physical Exam Constitutional: not in distress Eyes: PERRL, conjunctivae normal, anicteric sclerae ENMT: external ear and nose normal, oropharynx normal Neck: trachea midline, no thyromegaly Respiratory: normal respiratory effort, lungs clear to auscultation Cardiovascular: RRR, no murmur, no edema Extremities: + AV fistula (+ bruit) Gastrointestinal (Abdomen): normal bowel sounds, soft, nontender, no hepatosplenomegaly Musculoskeletal: R foot & ankle wrapped Skin: no rashes, warm and dry Results & Data ([facility]) Vital Signs (Past 12 Hours) Vital Signs Temp Pulse Resp BP Pulse Ox O2 Del Method 07/11/22 07:34 36.9 C 61 18 140/65 93 Room Air 07/10/22 21:35 37.6 C H 70 16 135/74 91 Room Air PG Care Time/CCT Total # of Minutes Spent Total Time Spent with Patient: Total time spent is greater than 50% in coordination of care (as documented) at patient's floor/unit and/or counseling patient: Coding Level of Care Code 09952 Subseq Hosp Care Lvl 3 Diagnoses ESRD (end stage renal disease) on dialysis N18.6; Z99.2 HTN (hypertension) I10 Closed trimalleolar fracture of right ankle S82.851A Anemia D64.9 Atrial fibrillation I48.91
[2022-07-11] MEDS: INSULIN ASPART PER UNIT SC SCH ×4 (09:17→20:33)
--- NOTE | 2022-07-11 15:52 | Hospitalist Progress Note ---
Date of Service July 11, 2022 Assessment & Plan (1) Closed trimalleolar fracture of right ankle: Plan: Eliquis on hold since morning of 07/09 Planning for transfer to [facility] - accepted transfer under medicine under Dr Taya Rabago with Dr Loredo to consult for definitive surgical management (although actual surgery to be performed by podiatry down there). Discussed with transfer center for [place] and Dr Loredo today to confirm plan. (2) Atrial fibrillation: Plan: -Last had Eliquis 07/09 in the AM -Continue amiodarone 200mg QD (3) ESRD (end stage renal disease) on dialysis: Plan: -On dialysis 3 x a week. On hemodialysis Wednesday Macrocytic anemia: No iron deficiency on iron studies. (4) Prostate cancer: Plan: - In remission s/p prostatectomy (5) Diabetes mellitus: Plan: Home glipizide dose 5 mg twice daily (6) GERD (gastroesophageal reflux disease): Plan: -Continue famotidine 20mg BID (7) HLD (hyperlipidemia): Plan: -Continue atorvastatin 40mg QD. (8) Gout: Plan: -continue allopurinol 100mg BID (9) HTN (hypertension): Plan: -Continue metoprolol 12.5 mg QD, midodrine 5mg 3xwk -Patient is on Entresto BID, Lasix 40mg QD and has had an ECHO recently. Sees an outside meat selector :we do not have access to these records and these medications were continued (10) Diabetic neuropathy: Plan: -Continue at home meds (11) Depression: Plan: Sertraline increased to 50 mg p.o. daily per prior provider. Plan VTE Prophylaxis - Eliquis on hold pending surgical decision Diet - dialysis renal, T2DM Disposition - continued admission on med/surg pending transfer Admission and Anticipated Discharge Date Admission Date: July 01, 2022 Subjective No acute concerns or questions. Discussed with transfer center for [facility] this morning and updated his medical condition. He is accepted for transfer under the medicine team at [place] for surgery under the [facility] umbrella cutter once there. We did discuss possibly changing orthopedic groups which the patient is amenable to if the transfer is not happening. Discussed case with Dr. Loredo and confirmed he was not the one that we will be doing surgery down in [place] however there are no ankle surgeons credentialed for [facility] at [facility] currently therefore the surgery cannot happen here on the [facility]. Updated his over the phone. Review of Systems Review of Systems: All systems reviewed & are unremarkable except as noted in Subjective Physical Exam Respiratory: normal respiratory effort, lungs clear to auscultation Cardiovascular: RRR, no murmur, no edema Extremities: + AV fistula (+ bruit) Gastrointestinal (Abdomen): normal bowel sounds, soft, nontender, no hepatosplenomegaly Musculoskeletal: Right foot in splint, cap refil < 2s Skin: no rashes, warm and dry Results & Data Results & Data ([facility]) Vital Signs (Past 12 Hours) Vital Signs Temp Pulse Resp BP Pulse Ox O2 Del Method 07/11/22 07:34 36.9 C 61 18 140/65 93 Room Air PG Care Time/CCT Total # of Minutes Spent Total Time Spent with Patient: Total time spent is greater than 50% in coordination of care (as documented) at patient's floor/unit and/or counseling patient: Coding Level of Care Code 18065 Subseq Hosp Care Lvl 1 Diagnoses Closed trimalleolar fracture of right ankle S82.851A Atrial fibrillation I48.91 ESRD (end stage renal disease) on dialysis N18.6; Z99.2 Prostate cancer C61 Diabetes mellitus E11.9 GERD (gastroesophageal reflux disease) K21.9 HLD (hyperlipidemia) E78.5 Gout M10.9 HTN (hypertension) I10 Diabetic neuropathy E11.40 Depression F32.A
[2022-07-11] MEDS: MONTELUKAST SODIUM 10 MG TABLET PO SCH (20:34)
[2022-07-11] MEDS: MELATONIN 3 MG TAB PO SCH (20:34)
[2022-07-11] MEDS: IMIPRAMINE HCL 50 MG TAB PO SCH (20:34)
[2022-07-12 06:55] LABS: Hematocrit (blood only) 28.5 % (40.1-51.0); Hemoglobin 9.4 g/dl (14.0-18.0); Mean Platelet Volume 9.6 fL (9.4-12.4); Platelet Count 249 K/uL (130-400); RDW Coefficient of Variation 16.8 % (11.5-14.5); RDW Standard Deviation 61.8 fL (36.4-46.3); Red Blood Count 2.85 M/uL (4.63-6.08); White Blood Count 8.18 K/ul (4.8-10.8)
[2022-07-12] MEDS: OMEGA-3 (PURIFIED FISH OIL) 1 GM CAP PO SCH (07:02)
[2022-07-12] MEDS: AMIODARONE 200 MG TAB PO SCH (07:02)
[2022-07-12] MEDS: METOPROLOL SUCC 25MG EXT REL TAB PO SCH (07:02)
[2022-07-12] MEDS: DOCUSATE SODIUM/SENNA 50/8.6MG TAB PO SCH (07:02)
[2022-07-12] MEDS: VALSARTAN/SACUBITRIL 26/24MG TAB PO SCH (07:02)
[2022-07-12] MEDS: CETIRIZINE HCL 10 MG TABLET PO SCH (07:02)
[2022-07-12] MEDS: SERTRALINE HCL 50 MG TABLET PO SCH (07:03)
[2022-07-12] MEDS: FUROSEMIDE 40 MG TAB PO SCH (07:03)
[2022-07-12] MEDS: VITAMIN B COMPLEX TAB PO SCH (07:03)
[2022-07-12] MEDS: NEPHROCAPS PO SCH (07:03)
[2022-07-12] MEDS: CHOLECALCIFEROL 1,000 UNITS 25 MCG TAB PO SCH (07:03)
[2022-07-12] MEDS: ATORVASTATIN 40 MG TAB PO SCH (07:03)
[2022-07-12] MEDS: FAMOTIDINE 20 MG TAB PO SCH (07:04)
[2022-07-12 07:06] LABS: BUN Creatinine Ratio 8.5 (10-20); Calcium 8.8 mg/dl (8.5-10.1); Creatinine Clr Calc Pharmacy 15.6 ml/min; Est GFR (African American) 11.5 ml/min; Est GFR (Non-African American) 9.9 ml/min; Potassium 4.3 mmol/L (3.5-5.1)
[2022-07-12] MEDS: INSULIN ASPART PER UNIT SC SCH (08:46)
--- NOTE | 2022-07-12 09:07 | Nephrology Progress Note ---
Date of Service July 12, 2022 Assessment & Plan (1) ESRD (end stage renal disease) on dialysis: Plan: * ESKD on HD MWF at [facility] (Dr. Breaux). Outpatient orders: 4 hours 2K bath 140 Na and 32 HCO3. Qb 400. UF goal 2-3 L, as tolerated. * AVF functioning well * Renal diet with 1 L daily fluid restriction * No acute indication for HD today. Will plan on HD tomorrow if patient remains at our facility (2) HTN (hypertension): Plan: * BP acceptable. Remains on entresto and metoprolol (3) Closed trimalleolar fracture of right ankle: Plan: * Management as per Orthopedics (4) Anemia: Plan: * Hgb stable. Iron stores overall acceptable (5) Atrial fibrillation: Plan: * Apixaban currently on hold. Remains on amiodarone. No symptoms Admission and Anticipated Discharge Date Admission Date: July 01, 2022 Subjective Mr. Philip was evaluated in his hospital room this morning. He voiced no new medical concerns. He hopes to be transferred to [facility] this morning Review of Systems Constitutional: no fever Eyes: no problem reported Ear, Nose, Mouth, Throat: no problem reported Respiratory: no cough and no dyspnea Cardiovascular: no chest pain and no edema Gastrointestinal: no abdominal pain Neurologic: no confusion Physical Exam Constitutional: not in distress Eyes: PERRL, conjunctivae normal, anicteric sclerae ENMT: external ear and nose normal, oropharynx normal Neck: trachea midline, no thyromegaly Respiratory: normal respiratory effort, lungs clear to auscultation Cardiovascular: RRR, no murmur, no edema Extremities: + AV fistula (+ bruit) Gastrointestinal (Abdomen): normal bowel sounds, soft, nontender, no hepatosplenomegaly Skin: no rashes, warm and dry Results & Data ([facility]) Vital Signs (Past 12 Hours) Vital Signs Temp Pulse Pulse Resp BP Pulse Ox O2 Del Method 07/12/22 07:30 36.6 C 68 16 136/63 95 Room Air 07/11/22 23:19 37 C 67 16 153/70 H 93 07/11/22 22:12 Room Air Laboratory Results Laboratory Tests 07/12/22 07/12/22 05:26 05:26 WBC 8.18 Hgb 9.4 L Hct 28.5 L Plt Count 249 Sodium 134 L Potassium 4.3 Chloride 98 Carbon Dioxide 28 BUN 45 H Creatinine 5.31 H* D Glucose 150 H Calcium 8.8 PG Care Time/CCT Total # of Minutes Spent Total Time Spent with Patient: Total time spent is greater than 50% in coordination of care (as documented) at patient's floor/unit and/or counseling patient: Coding Level of Care Code 33594 Subseq Hosp Care Lvl 3 Diagnoses ESRD (end stage renal disease) on dialysis N18.6; Z99.2 HTN (hypertension) I10 Closed trimalleolar fracture of right ankle S82.851A Anemia D64.9 Atrial fibrillation I48.91
[2022-07-13] MEDS ORDERED: SODIUM CHLORIDE 0.9% 1000ML 1,000 ML IV PRN (07:00)
[2022-07-13] MEDS ORDERED: EPOETIN ALFA 10,000 UNITS/ML VIAL IV ONE (07:00)
--- NOTE | 2022-07-20 09:40 | Discharge Summary ---
Date of Service July 12, 2022 Admission HPI Per Admitting Provider Patient is a 71 y/o male who presents to the ED with R ankle pain. PHMx of CABG (2019), DM2, prostate cancer (in remission), ESRD on dialysis (MW), on Eliquis (possibly Afib?). 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 Patient states that he has had an ECHO recently but does not know the reason for it. Patient states that he hurt his ankle when he was trying to get into a truck and fell out of the truck and landed on his R ankle and twisted. Denies any LOC, or hitting his head. He denies any other injuries besides his ankle. In the ED: Full body exam negative for any distracting injuries besides his R ankle. Xray showed displaced trimalleolar right ankle fracture with widening of the ankle mortise and posterior subluxation of the talus in relation to the distal tibia, VS stable, labs showed slight leukocytosis 10.8, hemoglobin 9.2, K 3.2, Cr 3.27, given morphine 1mg for pain. Ortho called and will evaluate in the AM and to admit the patient given nonweightbearing status. 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 His stay was prolonged due to inability of placement prior to his ankle operation. Therefore his case was discussed with [facility] Phyllis and he is accepted for transfer under medicine with Dr. Loredo ([facility] orthopedics) on consult for definitive surgical management. Of note: Medication list below are his admitting medications. Separate scanned sheet was provided to [facility] Phyllis of inpatient medications. (2) Atrial fibrillation: -Last had Eliquis 07/09 in the AM, held for potential operation -Continue amiodarone 200mg QD (3) ESRD (end stage renal disease) on dialysis: (4) Prostate cancer: (5) Diabetes mellitus: (6) GERD (gastroesophageal reflux disease): (7) HLD (hyperlipidemia): (8) Gout: (9) HTN (hypertension): (10) Diabetic neuropathy: (11) Depression: Total Time Total Time Spent Total Time Spent (In Minutes): 5 Discharge Plan Discharge Items Patient Disposition: Transfer Acute Care Hospital Reason For Visit: FALL, R ANKLE PAIN Discharge Diagnosis: Right trimalleolar ankle fracture Activity: As commented below Non-emergency contact: Surgeon Call non-emergency contact if: you have any medication questions and your symptoms worsen Follow-up/Referrals: Austyn Pinto [Primary Care Provider] - Diet: Carb Consistent or DM2 and Dialysis Renal Addtl Attending Provider Instructions: Raisa Philip is a 71 year old male admitted to [facility] from July 01 to 2021 due to right ankle fracture. His stay was prolonged due to inability of placement prior to his ankle operation. [facility] and he is accepted for transfer under medicine with Dr. Loredo ([facility] orthopedics) on consult for definitive surgical management. Of note: Medication list below are his admitting medications. See separate scanned sheet for inpatient medications. Addtl Overnight Houseperson Provider Instructions: Maintain splint right lower extremity at all times. Nonweightbearing right lower extremity with walker. Strict ice and elevation. Pending Studies at Discharge: No Stand-Alone Forms: My [facility] Skilled Items Patient informed of condition?: Yes DNR: No Discharge Level of Care: Other Communicable Disease: No Discharge Prognosis: Stable Lines: None Urinary Catheter: No Medications and DC Order Prescriptions: Continued furosemide [Lasix] 40 mg Tablet 40 mg PO DAILY atorvastatin 40 mg Tablet 40 mg PO DAILY imipramine HCl 50 mg Tablet 50 mg PO QPM omega-3 fatty acids 1,000 mg Capsule 1,000 mg PO BID cetirizine [Zyrtec] 10 mg Tablet 10 mg PO DAILY amiodarone 200 mg Tablet 200 mg PO DAILY allopurinol 100 mg Tablet 100 mg PO BID acetaminophen [Arthritis Pain Relief (acetam)] 650 mg Tablet Extended Release 650 mg PO Q12H PRN (Reason: Pain) famotidine 20 mg Tablet 20 mg PO BID sertraline 25 mg Tablet 25 mg PO DAILY montelukast 10 mg Tablet 10 mg PO PM metoprolol succinate 25 mg Tablet Extended Release 24 Hr 12.5 mg PO DAILY glipizide 5 mg Tablet 5 mg PO BID B-complex with vitamin C Tablet 1 tab PO DAILY midodrine 10 mg Tablet 5 mg PO [id number] Rx Instructions: prior to dialysis 3xs week coenzyme Q10 [Co Q-10] 200 mg Capsule 200 mg PO DAILY cholecalciferol (vitamin D3) [Vitamin D3] 50 mcg (2,000 unit) Tablet 50 mcg PO DAILY melatonin 10 mg Tablet 10 mg PO HS Eliquis 5 mg Tablet 5 mg PO BID Entresto 24-26 mg Tablet 1 tab PO BID Nerve Renew 2 tab PO DAILY Nerve Repair Optimizer 1 tab PO DAILY Discharge Orders: Discharge Order (Routine); Ordered 07/12/22 Ordered By: Trevor Ly/Other Patient Handouts: Managing Type 2 Diabetes, Special Foot Care for Diabetes Admission Data Admit Date/Time: 07/01/22 18:53 Attending Provider: Arie Boyce Admit Provider: Remy Li Primary Care Provider: Austyn Pinto Other Providers: Remy Li ; Titi Martinez ; Antonia Hernandez ; Gio Roman ; Shad Mills ; Bird Gregg ; Lalito Sanchez Other Interventions: Discharge Summary Assessment (RN) Last Done: 07/12/22 09:08 Coding Level of Care Code None Diagnoses Closed trimalleolar fracture of right ankle S82.851A Atrial fibrillation I48.91 ESRD (end stage renal disease) on dialysis N18.6; Z99.2 Prostate cancer C61 Diabetes mellitus E11.9 GERD (gastroesophageal reflux disease) K21.9 HLD (hyperlipidemia) E78.5 Gout M10.9 HTN (hypertension) I10 Diabetic neuropathy E11.40 Depression F32.A
== END 2022-07-12 10:56 | disposition short-term general hospital (02) | DRG 562 ==
LOC: ED 15:26 → 3N 18:53 → SUATTDRO 18:53 → 3N 20:27